=== PATIENT | female | born 1945 | race Caucasian/White ===

== ENCOUNTER 2017-05-06 12:31 | Outpatient (CLI) | payer MEDICARE, BC ==
[2017-05-06 16:55] LABS: Hematocrit 43.5 % (36.0-47.0); Mean Platelet Volume 9.6 fL (7.4-10.4); Red Blood Cell (RBC) Count 4.53 mill/uL (4.20-5.40); White Blood Cell (WBC) Count 7.9 thou/uL (4.8-10.8)
[2017-05-06 17:00] LABS: PTT 28.6 SEC (22.9-36.1); Prothrombin Time 12.6 SEC (12.0-14.7)
[2017-05-06 17:26] LABS: Anion Gap 18 mmol/L (10-20); BUN (Urea Nitrogen) 19 mg/dL (9.8-20.1); Calc. Creatinine Clearance 0 mL/min (70-130); Calcium 9.6 mg/dL (7.8-10.44); Carbon Dioxide 20 mmol/L (23-31); Chloride 106 mmol/L (98-107); Estimated GFR-MDRD 50
--- NOTE | 2017-05-09 15:54 | EKG ---
Test Reason : PREOP Blood Pressure : / mmHG Vent. Rate : 086 BPM Atrial Rate : 077 BPM P-R Int : 000 ms QRS Dur : 188 ms QT Int : 442 ms P-R-T Axes : 000 -86 091 degrees QTc Int : 528 ms Electronic ventricular pacemaker When compared with ECG of 27-JAN-2017 06:44, Premature ventricular complexes are no longer Present Vent. rate has increased BY [address] Iliana BARBER ([id number]) on 05/09/2017 3:54:23 PM Referred By: FAY Confirmed By:DR. Iliana BARBER
== END 2017-05-06 12:32 | disposition home or self-care (01) ==
LOC: LABBT 12:31
PROVIDERS: ATTEND Internal Medicine Cardiovascular Disease
DX: Z01.818 Encounter for other preprocedural examination (principal); I48.91 Unspecified atrial fibrillation
CPT/HCPCS: 80048; 85027; 85610; 85730; 93005; 93010

== ENCOUNTER 2017-05-20 14:48 | Outpatient (CLI) | payer MEDICARE, BC ==
[2017-05-20 15:40] LABS: Hematocrit 43.4 % (36.0-47.0); Red Blood Cell (RBC) Count 4.57 mill/uL (4.20-5.40)
[2017-05-20 15:50] LABS: PTT 29.5 SEC (22.9-36.1); Prothrombin Time 13.2 SEC (12.0-14.7)
[2017-05-20 16:03] LABS: ALT (SGPT) 27 U/L (8-55); AST (SGOT) 25 U/L (5-34); Alkaline Phosphatase 117 U/L (40-150); Anion Gap 13 mmol/L (10-20); BUN (Urea Nitrogen) 23 mg/dL (9.8-20.1); Bilirubin, Total 1.9 mg/dL (0.2-1.2); Calc. Creatinine Clearance 0 mL/min (70-130); Carbon Dioxide 27 mmol/L (23-31); Chloride 103 mmol/L (98-107); Estimated GFR-MDRD 46; Globulin 3.3 g/dL (2.4-3.5); Protein, Total 7.5 g/dL (6.0-8.3)
== END 2017-05-20 14:49 | disposition home or self-care (01) ==
LOC: LABBT 14:48
PROVIDERS: ATTEND Internal Medicine Cardiovascular Disease
DX: Z01.818 Encounter for other preprocedural examination (principal); R94.39 Abnormal result of other cardiovascular function study
CPT/HCPCS: 80053; 85027; 85610; 85730

== ENCOUNTER 2017-05-22 06:20 | Day surgery (SDC) | payer MEDICARE, BC ==
[2017-05-20 15:13] VITALS: BMI 36.9
[2017-05-22] MEDS ORDERED: Diazepam 5 MG TAB PO SCH (07:15)
[2017-05-22] MEDS ORDERED: Heparin 10,000 UNITS/1 ML VIAL ONE (07:28)
[2017-05-22] MEDS ORDERED: Diazepam 5 MG TAB ONE (07:29)
[2017-05-22] MEDS ORDERED: Heparin 1000 UNIT/NS 500ML(OR) 1,000 ML ONE (07:29)
[2017-05-22] MEDS ORDERED: Midazolam HCl 2 mg/2 ml Vial ONE (08:49)
[2017-05-22] MEDS ORDERED: Fentanyl 100 MCG/2 ML VIAL ONE (08:50)
[2017-05-22] MEDS ORDERED: Acetaminophen/Codeine 30-300mg Tablet ONE (10:25)
[2017-05-22] MEDS ORDERED: traMADol HCl 50 MG TAB PO PRN (11:41)
[2017-05-22] MEDS ORDERED: Acetaminophen/Codeine 30-300mg Tablet PO PRN ×2 (11:41)
[2017-05-22] MEDS ORDERED: Nitroglycerin 0.4 MG TAB (25 Tab Bottle) SL PRN (11:41)
[2017-05-22] MEDS ORDERED: diphenhydrAMINE 50 MG/ML VIAL ONE (11:59)
[2017-05-22] MEDS ORDERED: Iopamidol 370 76% 100 ML VIAL ONE (15:11)
--- NOTE | 2017-05-22 19:41 | DIS ---
DATE OF ADMISSION: 05/22/2017 DATE OF DISCHARGE: 05/22/2017 DISCHARGE DIAGNOSES: 1. Coronary artery disease. 2. Hypertension. 3. Dyslipidemia. 4. Atrial fibrillation. 5. Hypertension. 6. Diabetes mellitus. HISTORY OF PRESENT ILLNESS: The patient is a pleasant 72-year-old woman who presented with recurrent chest discomfort. The patient has a history of mild coronary artery disease. She has had the Watch man procedure done for atrial fibrillation. The patient reported recently having increasing chest di scomfort. She underwent a PET scan which revealed possible anterior ischemia with a mild decrease in left ventricular ejection fraction. HOSPITAL COURSE: On 05/22/2017, the patient underwent a left heart catheterization and was found to have normal left ventricular systolic function with estimated ejection fraction 55-60%. The LAD had a 20% proximal lesion, left circumflex artery had a 20% proximal lesion, the right coronary had a 20% mid lesion. The patient was felt to have mild coronary artery disease with no significant progressi on have only mild coronary artery disease. Patient will continue on medical therapy. DISCHARGE MEDICATION: Aspirin 81 daily, Lipitor 20 at bedtime, Plavix 75 daily, iron sulfate 325 rebekah ly, Lasix 40 q.a.m., glipizide 2.5 b.i.d., Imdur 120 q.a.m., lisinopril 40 daily, metformin 500 b.i.d . which will be restarted on Friday, metoprolol 25 mg p.o. b.i.d.
== END 2017-05-22 14:34 | disposition home or self-care (01) ==
LOC: CCL 06:20
PROVIDERS: ATTEND Internal Medicine Cardiovascular Disease
DX: I25.10 Atherosclerotic heart disease of native coronary artery without angina pectoris (principal); I10 Essential (primary) hypertension; E78.5 Hyperlipidemia, unspecified; E11.9 Type 2 diabetes mellitus without complications; I48.0 Paroxysmal atrial fibrillation; E66.9 Obesity, unspecified; Z68.37 Body mass index [BMI] 37.0-37.9, adult; Z79.82 Long term (current) use of aspirin; Z79.84 Long term (current) use of oral hypoglycemic drugs; Z79.899 Other long term (current) drug therapy; Z91.048 Other nonmedicinal substance allergy status; Z88.0 Allergy status to penicillin; Z88.1 Allergy status to other antibiotic agents; Z88.8 Allergy status to other drugs, medicaments and biological substances; Z82.49 Family history of ischemic heart disease and other diseases of the circulatory system
CPT/HCPCS: 80061; 93458; C1769; 99152; J1200; J1644; J2250; J3010

== ENCOUNTER 2018-04-30 10:49 | Outpatient (CLI) | payer MEDICARE, BC | END 2018-04-30 10:50 | disposition home or self-care (01) | LOC: BICMAMMO 10:49 | PROVIDERS: ATTEND Family Medicine | DX: Z12.31 Encounter for screening mammogram for malignant neoplasm of breast (principal); R92.1 Mammographic calcification found on diagnostic imaging of breast; Z85.3 Personal history of malignant neoplasm of breast | CPT/HCPCS: 77063; 77067 ==

== ENCOUNTER 2018-10-28 14:04 | Emergency (ER) | payer MEDICARE, BC ==
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
[2018-10-28 15:25] LABS: #Eosinphils 0.1 thou/uL (0.0-0.7); #Lymphocytes 1.5 thou/uL (1.20-3.40); #Monocytes 0.6 thou/uL (0.11-0.59); #Neutrophils 7.4 thou/uL (1.40-6.50); %Basophils 0.4 % (0.0-1.0); %Eosinophils 0.8 % (0.0-10.0); %Lymphocytes 15.3 % (21.0-51.0); %Monocytes 6.3 % (0.0-10.0); %Neutrophils 77.4 % (42.0-75.0); Hemoglobin 13.3 g/dL (12.0-16.0); Mean Corpuscular HGB CONC 32.5 g/dL (32.0-36.0); Mean Corpuscular Hemoglobin 30.5 pg (27.0-31.0); Mean Platelet Volume 9.5 fL (7.4-10.4); Platelet Count 152 thou/uL (130-400); RBC Distribution Width 14.5 % (11.5-14.5); Red Blood Cell (RBC) Count 4.37 mill/uL (4.20-5.40); White Blood Cell (WBC) Count 9.6 thou/uL (4.8-10.8)
[2018-10-28 15:30] LABS: Prothrombin Time 12.9 SEC (12.0-14.7)
[2018-10-28 15:31] LABS: PTT 30.4 SEC (22.9-36.1)
[2018-10-28 15:45] LABS: ALT (SGPT) 35 U/L (8-55); AST (SGOT) 29 U/L (5-34); Albumin 4.1 g/dL (3.4-4.8); Alkaline Phosphatase 116 U/L (40-150); Anion Gap 15 mmol/L (10-20); BUN (Urea Nitrogen) 15 mg/dL (9.8-20.1); Bilirubin, Total 2.7 mg/dL (0.2-1.2); CK (CPK) 72 U/L (29-168); Calc. Creatinine Clearance 0 mL/min (70-130); Calcium 9.6 mg/dL (7.8-10.44); Carbon Dioxide 25 mmol/L (23-31); Chloride 103 mmol/L (98-107); Estimated GFR-MDRD 50; Globulin 2.6 g/dL (2.4-3.5); Glucose 174 mg/dL (83-110); Potassium 3.5 mmol/L (3.5-5.1); Protein, Total 6.7 g/dL (6.0-8.3); Sodium 139 mmol/L (136-145)
[2018-10-28] MEDS ORDERED: HYDROcodone/Acetaminophen 7.5/325 mg Tablet ONE ×5 (15:48→16:03)
[2018-10-28] MEDS ORDERED: Furosemide 40 MG/4 ML VIAL ONE (16:37)
== END 2018-10-28 16:55 | disposition home or self-care (01) ==
LOC: ERS 14:04
DX: S20.212A Contusion of left front wall of thorax, initial encounter (principal); I10 Essential (primary) hypertension; F41.9 Anxiety disorder, unspecified; Z79.899 Other long term (current) drug therapy; Z79.82 Long term (current) use of aspirin; Z79.84 Long term (current) use of oral hypoglycemic drugs; V49.9XXA Car occupant (driver) (passenger) injured in unspecified traffic accident, initial encounter
CPT/HCPCS: 36415; 71045; 80053; 82550; 83880; 84484; 85025; 85610; 85730; 93005; 96374; J1940

== ENCOUNTER 2019-05-04 13:10 | Outpatient (CLI) | payer MEDICARE, BC ==
--- NOTE | 2019-05-04 14:47 | MMO ---
Bilateral MAMMO Bilat Screen [facility]. CLINICAL HISTORY: Patient is 74 years old and is seen for screening. The patient has no family history of breast cancer. The patient has a history of Core biopsy procedure revealed invasive ductal left breast carcinoma in January, and invasive ductal left breast carcinoma 2005. The patient has a history of left Lumpectomy in January, - invasive ductal carcinoma. VIEWS: The views performed were: bilateral craniocaudal with tomosynthesis; bilateral mediolateral oblique with tomosynthesis; left mediolateral oblique; and cleavage view. FILMS COMPARED: The present examination has been compared to prior imaging studies performed at [facility] on 12/01/2015, 04/26/2016, 04/28/2017 and 04/30/2018. This study has been interpreted with the assistance of computer-aided detection. MAMMOGRAM FINDINGS: There are scattered fibroglandular densities. There are stable benign appearing calcifications seen in both breasts. There are no suspicious masses, calcifications or areas of architectural distortion. There are no suspicious masses, suspicious calcifications, or new areas of architectural distortion. IMPRESSION: THERE IS NO MAMMOGRAPHIC EVIDENCE OF MALIGNANCY. A ROUTINE FOLLOW-UP MAMMOGRAM IN 1 YEAR IS RECOMMENDED. THE RESULTS OF THIS EXAM WERE SENT TO THE PATIENT. ACR BI-RADS Category 2 - Benign finding MAMMOGRAPHY NOTE: 1. A negative mammogram report should not delay a biopsy if a dominant of clinically suspicious mass is present. 2. Approximately 10% to 15% of breast cancers are not detected by mammography. 3. Adenosis and dense breasts may obscure an underlying neoplasm. Reported by: HUNTER WILKINSON MD Electonically Signed: [id number]
== END 2019-05-04 13:11 | disposition home or self-care (01) ==
LOC: BICMAMMO 13:10
PROVIDERS: ATTEND Family Medicine
DX: Z12.31 Encounter for screening mammogram for malignant neoplasm of breast (principal); Z85.3 Personal history of malignant neoplasm of breast; Z98.890 Other specified postprocedural states
CPT/HCPCS: 77063; 77067

== ENCOUNTER 2020-05-03 14:06 | Outpatient (CLI) | payer MEDICARE, BC ==
--- NOTE | 2020-05-03 14:58 | ULT ---
Exam: Left upper surgery venous ultrasound with Doppler HISTORY: Edema. Evaluate for thrombus. COMPARISON: None TECHNIQUE: Grayscale, color flow, Doppler imaging and spectral waveform analysis of the left upper ex tremity venous system FINDINGS: Breast ability, patency and flow in the internal jugular vein Patent subclavian vein Compressibility, patency and flow in the axillary vein, basilic vein, cephalic vein, brachial vein, r adial vein and ulnar vein. Left upper extremity edema. IMPRESSION: 1. No evidence of thrombus in the left upper extremity venous system. 2. Left upper extremity edema.
== END 2020-05-03 14:07 | disposition home or self-care (01) ==
LOC: BICULT 14:06
PROVIDERS: ATTEND Nurse Practitioner
DX: R60.0 Localized edema (principal)

== ENCOUNTER 2020-06-01 20:29 | Inpatient (IN) | payer MEDICARE, BC ==
[~2020-06-01 20:29] MED LIST: Iopamidol-370 76% 500 ML 1 ML ONE
[2020-06-01] MEDS ORDERED: Furosemide 40 MG/4 ML VIAL ONE (20:51)
[2020-06-01 21:09] LABS: #Eosinphils 0.1 thou/uL (0.0-0.7); #Lymphocytes 1.6 thou/uL (1.20-3.40); #Monocytes 0.7 thou/uL (0.11-0.59); #Neutrophils 5.1 thou/uL (1.40-6.50); %Basophils 0.2 % (0.0-1.0); %Eosinophils 1.9 % (0.0-10.0); %Lymphocytes 21.3 % (21.0-51.0); %Monocytes 9.6 % (0.0-10.0); %Neutrophils 67.1 % (42.0-75.0); Hemoglobin 12.3 g/dL (12.0-16.0); Mean Corpuscular HGB CONC 31.2 g/dL (32.0-36.0); Mean Corpuscular Hemoglobin 29.2 pg (27.0-31.0); Mean Corpuscular Volume 93.8 fL (78.0-98.0); Mean Platelet Volume 9.7 fL (7.4-10.4); Platelet Count 151 thou/uL (130-400); White Blood Cell (WBC) Count 7.7 thou/uL (4.8-10.8)
--- NOTE | 2020-06-01 21:14 | RAD ---
PORTABLE CHEST: Date: 06/01/2020 PROVIDED CLINICAL HISTORY: Shortness of breath. FINDINGS: Comparison with 10/28/2018. Evaluation is limited by patient body habitus. The cardiac silhouette remains markedly enlarged. Left subclavian cardiac pacing device is redemonstr ated. Coil material overlies the central left chest, similar to prior There is left basilar pleural a nd/or parenchymal opacity involving about half of the left hemithorax. The right lung appears clear. There is no evidence for pneumothorax. IMPRESSION: Conspicuous left basilar and pleural and/or parenchymal opacity. POS: PAUL
[2020-06-01 21:31] LABS: ALT (SGPT) 15 U/L (8-55); AST (SGOT) 20 U/L (5-34); Albumin 3.5 g/dL (3.4-4.8); Alkaline Phosphatase 181 U/L (40-110); Anion Gap 14 mmol/L (10-20); BUN (Urea Nitrogen) 35 mg/dL (9.8-20.1); Bilirubin, Total 2.9 mg/dL (0.2-1.2); Calc. Creatinine Clearance 0 mL/min (70-130); Calcium 9.2 mg/dL (7.8-10.44); Carbon Dioxide 27 mmol/L (23-31); Chloride 105 mmol/L (98-107); Glucose 134 mg/dL (83-110); Protein, Total 6.5 g/dL (6.0-8.3); Sodium 142 mmol/L (136-145)
--- NOTE | 2020-06-01 22:37 | CT ---
CT ABDOMEN AND PELVIS WITH IV CONTRAST: Date: 06/01/2020 PROVIDED CLINICAL HISTORY: Abdominal distention. FINDINGS: There is prominent dilatation of the right atrium. There is bilateral pleural fluid, left greater arie n right. There is consolidation at the left lung base that may reflect passive atelectasis and/or pne umonia. The liver, spleen, pancreas, kidneys, and adrenal glands appear unremarkable. There is moderate free intraperitoneal fluid. There is no evidence for bowel obstruction. There is no localized inflammatory fat stranding or free air apparent. There is extensive reticulation of the grayson bcutaneous adipose layer and patchy noncircumscribed fluid density throughout the regional subcutaneo us adipose layer. There is a focal round focus of altered CT density within the anterior abdominal wa ll subcutaneous adipose layer in the midline infraumbilically which presumably reflects a small ventr al hernia containing fluid. Prominent atherosclerotic vascular calcifications are seen. The osseous structures demonstrate no con cerning lytic or blastic lesions. IMPRESSION: 1. Bilateral pleural fluid, left greater than right, with subsegmental atelectasis and/or pneumonia at the left lung base. 2. Findings suggesting anasarca. 3. Moderate free intraperitoneal fluid. POS: PAUL
[2020-06-01] MEDS ORDERED: Acetaminophen 325 MG TAB PO PRN (23:54)
[2020-06-01] MEDS ORDERED: Acetaminophen 650 MG Suppository PR PRN (23:54)
[2020-06-01] MEDS ORDERED: Ondansetron PF 4 MG/2 ML Vial IVP PRN (23:54)
[2020-06-01] MEDS ORDERED: Ondansetron ODT 4 MG TAB PO PRN (23:54)
[2020-06-01] MEDS ORDERED: Calcium Carbonate 500 MG ChewTAB PO PRN (23:54)
--- NOTE | 2020-06-02 00:01 | PDOC.HHP ---
Hospitalist HPI - History of Present Illness abd distention sob History of Present Illness: Case of an 75y/o female with a pmhx of breast cacad, htn, hld atrial fibrillation s/p watchman, s/p ppm and DM who presents emergency department with 1 month of worsening abdominal distention. refers her son about 1 month ago and patient has not been compliant with her medications since then. patient states her legs have been swelling and now is difficult to walk. she complains of dyspnea and cough which has worsen recently denies any fever chills dysuria or diarrhea. Hospitalist ROS - Review of Systems All other systems reviewed; all pertinent +/- noted in HPI/Subj Hospitalist History - Past Surgical History Other Surgical History: stent - Family History Family History: reports: cardiac disorder, diabetes mellitus, hypertension - Social History Smoking Status: Never smoker Alcohol: reports: None Drugs: reports: none - Exam General Appearance: NAD, awake alert Eye: PERRL, anicteric sclera ENT: normocephalic atraumatic, no oropharyngeal lesions Neck: supple, symmetric, no thyromegaly Heart: RRR, no murmur, no gallops Respiratory: no ronchi, normal chest expansion, no tachypnea, rales Gastrointestinal: soft, non-tender, non-distended, normal bowel sounds Extremities: no clubbing, 2+ LE edema Extremities - other findings: significant swelling of L arm Skin: normal turgor Skin - other findings: multiple lesions on legs and abdomen Neurological: cranial nerve grossly intact, normal sensation to touch, no weakness Musculoskeletal: normal tone, normal strength Psychiatric: normal affect, normal behavior, A&O x 3 Hospitalist Results - Labs Result Diagrams: 06/01/20 20:57 06/01/20 20:57 Lab results: WBC 7.7 thou/uL (4.8-10.8) 06/01/20 20:57 Hgb 12.3 g/dL (12.0-16.0) 06/01/20 20:57 Hct 39.4 % (36.0-47.0) 06/01/20 20:57 MCV 93.8 fL (78.0-98.0) 06/01/20 20:57 Plt Count 151 thou/uL (130-400) 06/01/20 20:57 Neutrophils % 67.1 % (42.0-75.0) 06/01/20 20:57 Sodium 142 mmol/L (136-145) 06/01/20 20:57 Potassium 4.0 mmol/L (3.5-5.1) 06/01/20 20:57 Chloride 105 mmol/L (98-107) 06/01/20 20:57 Carbon Dioxide 27 mmol/L (23-31) 06/01/20 20:57 BUN 35 mg/dL (9.8-20.1) H 06/01/20 20:57 Creatinine 1.61 mg/dL (0.6-1.1) H 06/01/20 20:57 Glucose 134 mg/dL (83-110) H 06/01/20 20:57 Calcium 9.2 mg/dL (7.8-10.44) 06/01/20 20:57 Total Bilirubin 2.9 mg/dL (0.2-1.2) H 06/01/20 20:57 AST 20 U/L (5-34) 06/01/20 20:57 ALT 15 U/L (8-55) 06/01/20 20:57 Alkaline Phosphatase 181 U/L (40-110) H 06/01/20 20:57 Troponin I 0.019 ng/mL (< 0.028) 06/01/20 20:57 B-Natriuretic Peptide 827.6 pg/mL (0-100) H 06/01/20 20:57 Serum Total Protein 6.5 g/dL (6.0-8.3) 06/01/20 20:57 Albumin 3.5 g/dL (3.4-4.8) 06/01/20 20:57 Hospitalist H&P A/P - Problem (1) Decompensated heart failure Code(s): I50.9 - HEART FAILURE, UNSPECIFIED Status: Acute (2) Renal failure (ARF), acute on chronic Code(s): N17.9 - ACUTE KIDNEY FAILURE, UNSPECIFIED; N18.9 - CHRONIC KIDNEY DISEASE, UNSPECIFIED Status: Acute (3) Atrial fibrillation Code(s): I48.91 - UNSPECIFIED ATRIAL FIBRILLATION Status: Chronic (4) CAD (coronary artery disease) Code(s): I25.10 - ATHSCL HEART DISEASE OF [place] CORONARY ARTERY W/O ANG PCTRS Status: Chronic (5) CKD (chronic kidney disease) stage 3, GFR 30-59 ml/min Status: Chronic (6) DM2 (diabetes mellitus, type 2) Status: Chronic (7) HTN (hypertension) Code(s): I10 - ESSENTIAL (PRIMARY) HYPERTENSION Status: Chronic (8) Pleural effusion on left Code(s): J90 - PLEURAL EFFUSION, NOT ELSEWHERE CLASSIFIED Status: Acute (9) Respiratory failure with hypoxia Code(s): J96.91 - RESPIRATORY FAILURE, UNSPECIFIED WITH HYPOXIA Status: Acute - Plan Plan: Case of an 75y/o female with the stated pmhx who presents with Decompensated heart failure Decompensated heart failure - starting lasix iv - continue beta sarath - holding acei due to acute on chronic kidney injury - 02 supplmentation -bnp in 800s respiratory failure, acute - secondary to d chf and pleural effusion - 02 supplementation pleural effusion L sided - likely related to heart failure - could benefit from thoracenthesis - pulmonology consulted - concern for pneumonia low, f/u procalcitonin renal failure acute over chronic - likely due to vascular congestion - will start lasix iv, can worsen before improvement - monitor u/o and creatinine values cad continue home meds atrial fibrilliation - s/p watchman - cardiac monitoring - rate control w beta sarath - on asa DM - acc+ss L arm swelling - unclear etiology - refers weeks to months of progression - negative dvt - migh be related to hx of breast ca and lymph node removal anasarca - seen on Physical exam and abd/pelvic CT - normal appearing organs, no mass dectected
[2020-06-02] MEDS ORDERED: HumaLOG 300 UNITS/3 ML VIAL SC PRN (00:11)
[2020-06-02] MEDS ORDERED: Dextrose 5% in Water 1,000 ML IV PRN (00:11)
[2020-06-02] MEDS ORDERED: Dextrose 50% Abboject 50 ML SYRINGE SLOW IVP PRN (00:11)
[2020-06-02 00:29] LABS: Troponin I 0.023 ng/mL (< 0.028)
[2020-06-02 01:26] VITALS: BMI 43.6
[2020-06-02 04:29] LABS: SARS-CoV-2 MS2 Positive; SARS-CoV-2 N Gene Negative; SARS-CoV-2 S Gene Negative; SARS-CoV-2 by NAA Not Detected (NotDetected); SARS-CoV-2 orf1ab Negative
[2020-06-02 05:12] LABS: #Eosinphils 0.1 thou/uL (0.0-0.7); #Lymphocytes 1.8 thou/uL (1.20-3.40); #Monocytes 1.2 thou/uL (0.11-0.59); %Basophils 0.3 % (0.0-1.0); %Eosinophils 0.7 % (0.0-10.0); %Lymphocytes 19.9 % (21.0-51.0); %Monocytes 13.4 % (0.0-10.0); %Neutrophils 65.7 % (42.0-75.0); Hemoglobin 12.6 g/dL (12.0-16.0); Mean Corpuscular HGB CONC 30.8 g/dL (32.0-36.0); Mean Corpuscular Hemoglobin 28.8 pg (27.0-31.0); Mean Corpuscular Volume 93.6 fL (78.0-98.0); Mean Platelet Volume 10.1 fL (7.4-10.4); Platelet Count 133 thou/uL (130-400); RBC Distribution Width 15.9 % (11.5-14.5); Red Blood Cell (RBC) Count 4.36 mill/uL (4.20-5.40); White Blood Cell (WBC) Count 9.1 thou/uL (4.8-10.8)
[2020-06-02 05:43] LABS: ALT (SGPT) 13 U/L (8-55); AST (SGOT) 22 U/L (5-34); Albumin 3.4 g/dL (3.4-4.8); Alkaline Phosphatase 168 U/L (40-110); Anion Gap 16 mmol/L (10-20); BUN (Urea Nitrogen) 34 mg/dL (9.8-20.1); Bilirubin, Direct 0.9 mg/dL (0.1-0.3); Calc. Creatinine Clearance 65 mL/min (70-130); Calcium 9.2 mg/dL (7.8-10.44); Carbon Dioxide 21 mmol/L (23-31); Chloride 107 mmol/L (98-107); Glucose 78 mg/dL (83-110); Potassium 4.1 mmol/L (3.5-5.1); Protein, Total 6.4 g/dL (6.0-8.3); Sodium 140 mmol/L (136-145)
[2020-06-02 05:59] LABS: Troponin I 0.024 ng/mL (< 0.028)
[2020-06-02] MEDS ORDERED: Furosemide 40 MG/4 ML VIAL SLOW IVP SCH (06:00)
[2020-06-02] MEDS ORDERED: Enoxaparin Sodium 40 MG/0.4 ML SYRINGE SC SCH (09:00)
[2020-06-02] MEDS ORDERED: Metoprolol Tartrate 25 MG TAB PO SCH (09:00)
[2020-06-02] MEDS: Aspirin Chewable 81 MG TAB PO SCH (09:04)
[2020-06-02] MEDS: Enoxaparin Sodium 40 MG/0.4 ML SYRINGE SC SCH (09:04)
--- NOTE | 2020-06-02 10:45 | PDOC.BPN ---
- Brief Progress Note Encounter Date: 06/02/20 Encounter Time: 10:42 This is a case of an unfortunate 75-year-old woman who has multiple underlying cardiac history including congestive heart failure from diastolic dysfunction, chronic atrial fibrillation with watchman procedure done, morbid obesity with a BMI of 43, diabetes who presented to the hospital with Increasing abdominal distention going on for couple of days. Reportedly patient recently lost her son and she has been quite depressed. As a result she has not been taking her on routine home medicines. She has gained about 20 pounds she thinks in the last month. She does have generalized edema from her feet up to her thighs. She has increased abdominal girth. CT obtained on admission showed moderate intraperitoneal fluid likely ascites from a volume overload. She also in addition has bilateral pleural effusion worse on the left. She is going to need aggressive diuresis and increase her Lasix to 80 mg twice daily. We will measure her urine output daily, will check her weight daily and will strictly restrict her fluids to 1500 mL daily. We will make further recommendations as the hospital course warrants.
--- NOTE | 2020-06-02 13:46 | CON ---
DATE OF CONSULTATION: 06/02/2020 CONSULTING PHYSICIAN: Dr. Keith Crews. REASON FOR CONSULTATION: Pleural effusion. HISTORY OF PRESENT ILLNESS: This is a 75-year-old female, who presented to the emergency room last night with a one month history of increasing shortness of breath and abdominal distention. She is a very poor historian. She tells me she does have a history of heart failure, but cannot really expound upon that. She also tells me that she has history of sleep apnea, but that her CPAP machine was taken away by the company because she believes she no longer had SUSANNAH. She states that she has orthopnea, paroxysmal nocturnal dyspnea. She has to sleep in a recliner at night. PAST MEDICAL HISTORY: 1. Atrial fibrillation. 2. Breast cancer. 3. Diabetes mellitus. 4. Hyperlipidemia. PAST SURGICAL HISTORY: 1. She has had a Watchman procedure. 2. Pacemaker placement. 3. Coronary stent placement. FAMILY MEDICAL HISTORY: Remarkable for; 1. Coronary artery disease. 2. Diabetes mellitus. 3. Hypertension. SOCIAL HISTORY: Never smoker. Does not consume alcohol. Does not use illicit drugs. ALLERGIES: ADHESIVE TAPE, DRONEDARONE, LEVOFLOXACIN, AND PENICILLINS. MEDICATIONS: Prior to admission; 1. Atorvastatin 40 mg nightly. 2. Isosorbide mononitrate 120 mg daily. 3. Ferrous sulfate 325 mg every morning. 4. Vitamin D3 of 1000 units every morning. 5. Glipizide 2.5 mg daily. 6. Metoprolol 25 mg b.i.d. 7. Lisinopril 40 mg daily. 8. Furosemide 40 mg every morning. 9. Keflex 250 mg b.i.d. as needed. 10. Metformin 5000 mg b.i.d. 11. Aspirin 81 mg daily. 12. Alprazolam 0.25 mg as needed. 13. Nitroglycerin sublingual as needed. Her inpatient medications were reviewed. Of note, she is on Lasix 80 mg b.i.d. REVIEW OF SYSTEMS: Twelve-point review of systems is otherwise negative. PHYSICAL EXAMINATION: VITAL SIGNS: Temperature 97.2, pulse 76, respirations 18, O2 sat 97% on 3 L, blood pressure 111/60. GENERAL: She is a morbidly obese female, standing 5 feet 7 inches, weighing 278 pounds, BMI is 43.6. GENERAL: She appears disheveled, but in no acute distress. HEENT: Pupils reactive. Sclerae anicteric. Oropharynx class 4 Mallampati airway. NECK: No adenopathy or JVD. CHEST: She has diminished breath sounds in both bases. CARDIAC: S1, S2 obscured by a 2/6 holosystolic murmur. ABDOMEN: Profoundly distended. She has discoid macular lesions present over the surface of her abdomen. EXTREMITIES: She has discoid macular lesions present on her arms and legs. She has 3 to 4+ edema throughout her arms and legs. LABORATORY AND DIAGNOSTIC DATA: White blood cell count 9.1, hematocrit 40.8, and platelet count 133. Sodium 140, potassium 4.8, chloride 107, CO2 of 21, BUN 34, creatinine 1.5, glucose 78. BNP level was 827. TSH 3.6. Her COVID test was negative. I reviewed her CT and chest x-rays. She has a small left pleural effusion. Echocardiogram demonstrates EF probably less than 20% with a mildly enlarged right ventricle, [id number] tricuspid regurgitation. ASSESSMENT: Ms. Napier is a 75-year-old female presenting with anasarca, which is secondary to biventricular heart failure. The patient has a grossly diminished ejection fraction, but also has evidence of right-sided failure. The right-sided failure may be secondary to sleep apnea. The pleural effusion is part of the overall picture. It is not of significant enough size to warrant thoracentesis. RECOMMENDATIONS: I would recommend diuresing the patient as you are doing. This will probably take several days to accomplish and get her back to reasonable weight. When she is discharged from the hospital, I would recommend further evaluation through her primary care provider for sleep apnea, which should entail ordering a repeat sleep study and getting her back on CPAP. Pulmonary will be available as needed, please call. Job ID: [id number]
[2020-06-02] MEDS: diphenhydrAMINE 25 MG CAP PO PRN (14:12)
[2020-06-02] MEDS: Furosemide 100 MG/10 ML VIAL SLOW IVP SCH (15:12)
[2020-06-02] MEDS: Potassium Chloride 20 MEQ TAB PO SCH (16:15)
--- NOTE | 2020-06-02 16:18 | ULT ---
LIMITED ABDOMINAL ULTRASOUND: 06/02/20 PROVIDED CLINICAL HISTORY: Ascites. FINDINGS: Limited sonographic interrogation of the right upper quadrant, right lower quadrant, left lower quad rant, and left upper quadrant demonstrates moderate free intraperitoneal fluid. IMPRESSION: Moderate ascites. POS: PAUL
--- NOTE | 2020-06-02 19:43 | CON ---
DATE OF CONSULTATION: HISTORY OF PRESENT ILLNESS: Christal Napier is a 75-year-old white female patient of Dr. Ramos. She underwent stent placement to the circumflex in April 2007 and in April 2008. She has had longstanding paroxysmal and persistent atrial fibrillation. She has undergone atrial fibrillation ablation as well as placement of a Watchman, AV node ablation, and single-chamber pacemaker placement. Her last echo in the office was in October 2018. She had ejection fraction of 60% to 65% with mild aortic stenosis, mild aortic regurgitation, [id number] tricuspid regurgitation, and moderately elevated RV pressures. She was last seen in the office in April and was complaining of some mild shortness of breath. She had been noncompliant with her CPAP. Apparently, her son a month ago and according to 's reports to the admitting physician, she has not been taking her medications. She states over the last month she has had increasing shortness of breath, increasing peripheral edema, and episodes of PND. She denies any chest discomfort. Due to her worsening dyspnea, she came to the emergency room for further evaluation. PAST MEDICAL HISTORY: Diabetes, hyperlipidemia, obesity, coronary artery disease, chronic atrial fibrillation now, hypertension, history of breast cancer. PAST SURGICAL HISTORY: Back surgery, breast surgery, neck surgery, cholecystectomy, atrial fibrillation ablation, placement of Watchman, stent placement in the circumflex (in May 2017, she only had 20% stenosis in the circumflex, mid LAD, and the mid right coronary artery). MEDICATIONS: 1. Alprazolam 0.25 mg p.r.n. 2. Aspirin 81 daily. 3. Atorvastatin 40 at bedtime. 4. Keflex 250 p.r.n. 5. Ferrous sulfate 325 q.a.m. 6. Furosemide 40 q.a.m. 7. Glipizide 2.5 mg q.a.m. 8. Isosorbide mononitrate 120 q.a.m. 9. Lisinopril 40 at bedtime. 10. Metformin 500 b.i.d. 11. Metoprolol 25 b.i.d. 12. Nitroglycerin p.r.n. ALLERGIES: MULTAQ, LEVAQUIN, PENICILLINS. SOCIAL HISTORY: She does not smoke or drink. PHYSICAL EXAMINATION: VITAL SIGNS: Blood pressure 109/64, pulse 69. HEENT: PERRL. NECK: Supple. CHEST: Reveals crackles at the bases. CARDIOVASCULAR: S1 and S2 are normal without any S3, S4, or murmur. ABDOMEN: Obese. Normal bowel sounds. EXTREMITIES: Reveal 2 to 3+ peripheral edema. NEUROLOGIC: Grossly intact. LABORATORY DATA: EKG reveals ventricular pacing. Chest x-ray reveals opacity over the left hemithorax. Echocardiogram was very technically difficult. Difficult to assess left ventricular function; however, it was probably less than 20%. There was mild mitral regurgitation and [id number]-[id number] tricuspid regurgitation. The aortic valve was not well seen. CBC is unremarkable. Sodium 140, potassium 4.1, chloride 107, carbon dioxide 21, BUN 34, creatinine 1.50. Troponin I is normal. BNP 827.6. TSH is normal. IMPRESSION: 1. Systolic heart failure. Ejection fraction in October 2018 was 60% to 65% and now appears to be less than 20%. 2. Chronic right ventricular pacing. 3. Persistent atrial fibrillation, status post multiple ablations. 4. History of Watchman procedure. 5. History of coronary artery disease, status post stents placed in the circumflex on 2 occasions. Last catheterization in 2016 revealed no significant coronary artery disease. 6. Hypertension. 7. Hyperlipidemia. 8. Obesity. 9. Diabetes. 10. Obstructive sleep apnea. 11. Noncompliance with medications recently. 12. Chronic kidney disease. PLAN: The patient will be diuresed. The lisinopril has been held at this time due to her chronic kidney disease. Her renal function will need to be watched closely. Also with her current left ventricular ejection fraction, I will switch her from metoprolol to carvedilol. Consideration needs to be given to upgrade to a biventricular ICD or biventricular pacemaker and Electrophysiology has been consulted to see her on Friday. Job ID: [id number] [facility]
[2020-06-03] MEDS: diphenhydrAMINE 25 MG CAP PO PRN (03:14)
[2020-06-03 05:07] LABS: #Eosinphils 0.1 thou/uL (0.0-0.7); #Lymphocytes 1.5 thou/uL (1.20-3.40); #Monocytes 0.8 thou/uL (0.11-0.59); #Neutrophils 5.6 thou/uL (1.40-6.50); %Basophils 0.2 % (0.0-1.0); %Eosinophils 1.6 % (0.0-10.0); %Lymphocytes 18.2 % (21.0-51.0); %Monocytes 10.2 % (0.0-10.0); %Neutrophils 69.8 % (42.0-75.0); Hemoglobin 12.2 g/dL (12.0-16.0); Mean Corpuscular HGB CONC 30.3 g/dL (32.0-36.0); Mean Corpuscular Hemoglobin 28.8 pg (27.0-31.0); Mean Platelet Volume 9.9 fL (7.4-10.4); Platelet Count 140 thou/uL (130-400); RBC Distribution Width 15.9 % (11.5-14.5); Red Blood Cell (RBC) Count 4.24 mill/uL (4.20-5.40)
[2020-06-03 05:13] LABS: INR-International Normal Ratio 1.1; PTT 36.3 sec (22.9-36.1); Prothrombin Time 14.9 sec (12.0-14.7)
[2020-06-03 05:39] LABS: Anion Gap 17 mmol/L (10-20); BUN (Urea Nitrogen) 38 mg/dL (9.8-20.1); Calc. Creatinine Clearance 61 mL/min (70-130); Calcium 9.2 mg/dL (7.8-10.44); Carbon Dioxide 23 mmol/L (23-31); Chloride 105 mmol/L (98-107); Glucose 89 mg/dL (83-110); Potassium 4.9 mmol/L (3.5-5.1); Sodium 140 mmol/L (136-145)
[2020-06-03] MEDS: Furosemide 100 MG/10 ML VIAL SLOW IVP SCH ×2 (06:49→13:16)
[2020-06-03] MEDS: Aspirin Chewable 81 MG TAB PO SCH (09:34)
[2020-06-03] MEDS: Potassium Chloride 20 MEQ TAB PO SCH ×2 (09:34→17:36)
[2020-06-03] MEDS: Carvedilol 3.125 MG TAB PO SCH ×3 (09:34→17:35)
[2020-06-03] MEDS ORDERED: Lidocaine 1% PF 5 ML VIAL ONE (10:08)
--- NOTE | 2020-06-03 10:49 | ULT ---
Limited abdominal ultrasound: 06/03/2020 HISTORY: Evaluate volume of ascites for therapeutic paracentesis FINDINGS: There is scattered fluid within the abdomen/pelvis suggesting a relatively mild/moderate de gree of diffuse ascites. The volume of ascites does not suggest that there would be significant therapeutic benefit with paracentesis. This was discussed with the ordering physician at the time of interpretation. As this is not requested to be a diagnostic paracentesis, this procedure is deferred at this time and could be reconsidered at a later time if fluid volume increases. IMPRESSION: Ascites within the abdomen/pelvis, not of sufficient volume to indicate significant thera peutic benefit to paracentesis.
[2020-06-03] MEDS ORDERED: Albumin 25% 25 GM/100 ML BOT IVPB SCH (10:58)
--- NOTE | 2020-06-03 11:45 | PDOC.HOSPP ---
- Subjective Encounter Date: 06/03/20 Encounter Time: 11:42 Subjective: Ms. Napier is a 75-year-old woman who presented to the hospital with increased abdominal girth and weight gain. This was associated with 2-3+ pitting edema up to her thighs. She has generalized anasarca. She does have a history of chronic congestive heart failure previously with a preserved ejection fraction by most recent echo showed an EF less than 20. Apparently for about a month she has not been taking her medicines. She lost her son recently and just has not been taking care of her self. Since being admitted she has been placed on diuresis with Lasix with very minimal improvement. She had a CT of the abdomen and pelvis obtained on admission that showed what appeared to be a moderate ascites. However an attempt at therapeutic paracentesis did not yield any significant amount of fluid. We will continue diuresis and watch for hopefully increasing urinary output. - Objective Vital Signs & Weight: Vital Signs (12 hours) Temp Pulse Resp BP Pulse Ox 06/03/20 08:00 97.8 F 70 18 109/63 96 06/03/20 03:43 97.6 F 71 16 96/56 L 95 06/03/20 01:06 98 06/02/20 23:55 97.6 F 70 16 101/65 98 Weight Weight 272 lb 12.8 oz I&O: 06/02/20 06/03/20 06/04/20 06:59 06:59 06:59 Intake Total 1604 80 Output Total 850 175 Balance 754 -95 Result Diagrams: 06/03/20 04:49 06/03/20 04:49 Additional Labs: Accuchecks 06/03/20 06/03/20 06/02/20 11:22 05:01 16:51 POC Glucose 77 81 85 Radiology Reviewed by me: Yes EKG Reviewed by me: Yes Hospitalist ROS - Review of Systems Constitutional: reports: weakness, malaise ENT: reports: mouth swelling Respiratory: reports: shortness of breath Cardiovascular: reports: orthopnea, paroxysmal noc. dyspnea, edema - Medication Medications: Active Medications Generic Name Dose Route Start Last Admin Trade Name Freq PRN Reason Stop Dose Admin Acetaminophen 650 mg 06/01/20 23:54 06/02/20 07:53 Acetaminophen 325 Mg Tab PO 650 mg Q4H PRN Administration Headache/Fever/Mild Pain (1-3) Aspirin 81 mg 06/02/20 09:00 06/03/20 09:34 Aspirin Chewable 81 Mg Tab PO 81 mg DAILY LARISA Administration Calcium Carbonate 1,000 mg 06/01/20 23:54 06/02/20 21:01 Calcium Carbonate 500 Mg Chewtab PO 1,000 mg Q4H PRN Administration Heartburn or Indigestion Diphenhydramine HCl 25 mg 06/02/20 13:52 06/03/20 03:14 Diphenhydramine 25 Mg Cap PO 25 mg Q8H PRN Administration Itching & Insomnia Enoxaparin Sodium 40 mg 06/02/20 09:00 06/02/20 09:04 Enoxaparin Sodium 40 Mg/0.4 Ml Syringe SC 40 mg 0900 LARISA Administration Furosemide 80 mg 06/02/20 14:00 06/03/20 06:49 Furosemide 100 Mg/10 Ml Vial SLOW IVP 80 mg 0600,1400 LARISA Administration Ondansetron HCl 4 mg 06/01/20 23:54 06/03/20 03:14 Ondansetron Pf 4 Mg/2 Ml Vial IVP 4 mg Q6H PRN Administration Nausea/Vomiting Potassium Chloride 40 meq 06/02/20 17:00 06/03/20 09:34 Potassium Chloride 20 Meq Tab PO 40 meq BID-WM LARISA Administration Sodium Chloride 10 ml 06/02/20 21:00 06/03/20 09:35 Flush - Normal Saline 10 Ml Syringe IVF 10 ml Q12HR LARISA Administration - Exam General Appearance: awake alert, ill appearing Eye: PERRL, anicteric sclera, scleral icterus ENT: normocephalic atraumatic, no oropharyngeal lesions, moist mucosa Neck: supple, symmetric, JVD Heart: RRR, no murmur, no gallops, no rubs, normal peripheral pulses Respiratory: no wheezes, normal chest expansion, rales, rhonchi Gastrointestinal: soft, non-tender, normal bowel sounds, distended Extremities: 2+ LE edema Skin: normal turgor, no lesions Neurological: cranial nerve grossly intact, normal sensation to touch Musculoskeletal: normal tone, normal strength, generalized weakness Psychiatric: normal affect, normal behavior, A&O x 3 Hosp A/P (1) Pleural effusion on left Code(s): J90 - PLEURAL EFFUSION, NOT ELSEWHERE CLASSIFIED Status: Acute (2) Aortic stenosis Code(s): I35.0 - NONRHEUMATIC AORTIC (VALVE) STENOSIS Status: Acute Qualifiers: Cardiac valve disease etiology: nonrheumatic Qualified Code(s): I35.0 - Nonrheumatic aortic (valve) stenosis - Plan old records reviewed/req, PT/OT #1. Acute respiratory failure with hypoxia. This is secondary to congestive heart failure exacerbation. Continue O2 supplementation as needed. 2. Acute on chronic congestive heart failure exacerbation. I suspect this is biventricular. She has been placed on Lasix. However her urine output is very minimal. I will continue this for now and watch her renal function closely. 3. Ischemic cardiomyopathy. Her EF is less than 20%. We will resume her home medications. 4. Acute kidney injury. We will hold her lisinopril and watch her renal function closely. 5. Pleural effusion left > right. Diuresis as above.
--- NOTE | 2020-06-03 11:59 | ULT ---
Left upper extremity venous Doppler ultrasound: 06/03/2020 COMPARISON: None HISTORY: Left arm swelling, evaluate for DVT TECHNIQUE: Multiplanar grayscale sonographic imaging of the venous structures of the left upper extre mity obtained with Doppler interrogation including color flow and spectral analysis FINDINGS: The left internal jugular vein, subclavian vein, axillary vein, brachial vein, radial vein, ulnar vein, cephalic vein, and basilic vein demonstrate patency. Normal blood flow, augmentation, and compression. No evidence for deep venous thrombosis of the left upper extremity. IMPRESSION: No evidence for left upper extremity DVT.
[2020-06-03] MEDS: Enoxaparin Sodium 40 MG/0.4 ML SYRINGE SC SCH (12:13)
[2020-06-04] MEDS: Furosemide 100 MG/10 ML VIAL SLOW IVP SCH ×2 (05:28→16:50)
[2020-06-04] MEDS: Enoxaparin Sodium 40 MG/0.4 ML SYRINGE SC SCH (09:36)
[2020-06-04] MEDS: Potassium Chloride 20 MEQ TAB PO SCH ×2 (09:36→16:41)
[2020-06-04] MEDS: Aspirin Chewable 81 MG TAB PO SCH (09:36)
[2020-06-04] MEDS: Carvedilol 3.125 MG TAB PO SCH ×2 (09:40→16:50)
[2020-06-04] MEDS ORDERED: Furosemide 100 MG/10 ML VIAL SLOW IVP SCH (10:00)
[2020-06-04] MEDS ORDERED: Sodium Chloride 0.9% 250 ML IV SCH (10:15)
--- NOTE | 2020-06-04 13:30 | PDOC.HOSPP ---
- Subjective Encounter Date: 06/04/20 Encounter Time: 13:28 Subjective: Ms. Napier was seen and evaluated this morning. Her urine output is still pretty minimal. She was admitted to the hospital for acute on chronic CHF exacerbation from systolic dysfunction. Despite high doses of Lasix her urine output has been very minimal. I am going to ask our x ray technologist to help with diuresis. - Objective Vital Signs & Weight: Vital Signs (12 hours) Temp Pulse Pulse Pulse Resp BP BP 06/04/20 12:00 97.6 F 69 20 06/04/20 11:32 70 70 104/62 106/64 06/04/20 07:15 97.6 F 70 24 H 06/04/20 04:24 69 20 06/04/20 03:54 97.4 F L 70 18 06/04/20 01:35 BP Pulse Ox 06/04/20 12:00 95/60 95 06/04/20 11:32 06/04/20 07:15 106/55 L 97 06/04/20 04:24 108/62 94 L 06/04/20 03:54 91/56 L 90 L 06/04/20 01:35 94 L Weight Weight 280 lb 3.2 oz I&O: 06/03/20 06/04/20 06/05/20 06:59 06:59 06:59 Intake Total 1528 1140 Output Total 850 340 Balance 678 800 Result Diagrams: 06/03/20 04:49 06/03/20 04:49 Additional Labs: Accuchecks 06/04/20 06/04/20 06/03/20 10:20 05:09 17:41 POC Glucose 133 H 86 82 Radiology Reviewed by me: Yes EKG Reviewed by me: Yes Hospitalist ROS - Review of Systems Constitutional: reports: weakness, malaise Cardiovascular: reports: paroxysmal noc. dyspnea Gastrointestinal: reports: nausea Neurological: reports: weakness - Medication Medications: Active Medications Generic Name Dose Route Start Last Admin Trade Name Freq PRN Reason Stop Dose Admin Acetaminophen 650 mg 06/01/20 23:54 06/02/20 07:53 Acetaminophen 325 Mg Tab PO 650 mg Q4H PRN Administration Headache/Fever/Mild Pain (1-3) Aspirin 81 mg 06/02/20 09:00 06/04/20 09:36 Aspirin Chewable 81 Mg Tab PO 81 mg DAILY LARISA Administration Calcium Carbonate 1,000 mg 06/01/20 23:54 06/02/20 21:01 Calcium Carbonate 500 Mg Chewtab PO 1,000 mg Q4H PRN Administration Heartburn or Indigestion Carvedilol 3.125 mg 06/03/20 08:00 06/04/20 09:40 Carvedilol 3.125 Mg Tab PO Not Given BID-WM LARISA Diphenhydramine HCl 25 mg 06/02/20 13:52 06/03/20 03:14 Diphenhydramine 25 Mg Cap PO 25 mg Q8H PRN Administration Itching & Insomnia Enoxaparin Sodium 40 mg 06/02/20 09:00 06/04/20 09:36 Enoxaparin Sodium 40 Mg/0.4 Ml Syringe SC 40 mg 0900 LARISA Administration Furosemide 80 mg 06/02/20 14:00 06/04/20 05:28 Furosemide 100 Mg/10 Ml Vial SLOW IVP 80 mg 0600,1400 LARISA Administration Ondansetron HCl 4 mg 06/01/20 23:54 06/03/20 03:14 Ondansetron Pf 4 Mg/2 Ml Vial IVP 4 mg Q6H PRN Administration Nausea/Vomiting Potassium Chloride 40 meq 06/02/20 17:00 06/04/20 09:36 Potassium Chloride 20 Meq Tab PO 40 meq BID-WM LARISA Administration Sodium Chloride 10 ml 06/02/20 21:00 06/04/20 09:38 Flush - Normal Saline 10 Ml Syringe IVF 10 ml Q12HR LARISA Administration Sodium Chloride 10 ml 06/02/20 14:00 06/04/20 05:28 Flush - Normal Saline 10 Ml Syringe IVF 10 ml PRN PRN Administration Saline Flush - Exam General Appearance: NAD, awake alert, ill appearing Eye: PERRL, anicteric sclera ENT: normocephalic atraumatic, dry oral mucosa Neck: supple, symmetric, no JVD, no thyromegaly Heart: RRR, no murmur, no gallops, no rubs, normal peripheral pulses Respiratory: CTAB, no wheezes, no rales, no ronchi, normal chest expansion Gastrointestinal: soft, non-tender, non-distended, normal bowel sounds Neurological: cranial nerve grossly intact, normal sensation to touch, no weakness Musculoskeletal: normal tone, normal strength, no muscle wasting Psychiatric: normal affect, normal behavior, A&O x 3 Hosp A/P (1) Pleural effusion on left Code(s): J90 - PLEURAL EFFUSION, NOT ELSEWHERE CLASSIFIED Status: Acute (2) Aortic stenosis Code(s): I35.0 - NONRHEUMATIC AORTIC (VALVE) STENOSIS Status: Acute Qualifiers: Cardiac valve disease etiology: nonrheumatic Qualified Code(s): I35.0 - Nonrheumatic aortic (valve) stenosis - Plan plan discussed w/ family, PT/OT, respiratory therapy, out of bed/ambulate, DVT proph w/lovenox #1. Acute respiratory failure with hypoxia. This is secondary to congestive heart failure exacerbation. Continue O2 supplementation as needed. 2. Acute on chronic congestive heart failure exacerbation. I suspect this is biventricular. She has been placed on Lasix. However her urine output is very minimal. I will continue this for now and watch her renal function closely. 06/04/2020. Her urine output is still very minimal. She is almost anuric. I am going to request nephrology to help us with further management. 3. Ischemic cardiomyopathy. Her EF is less than 20%. We will resume her home medications. 4. Acute kidney injury. We will hold her lisinopril and watch her renal function closely. 06/04/2020. I am going to ask nephrology to help with the further management of this complex patient. 5. Pleural effusion left > right. Diuresis as above.
[2020-06-04] MEDS ORDERED: DOPamine 400 MG/D5W 250 ML 250 ML IVPB SCH (18:45)
[2020-06-04] MEDS ORDERED: Metolazone 5 MG TAB PO SCH (18:45)
[2020-06-04 19:09] LABS: Anion Gap 15 mmol/L (10-20); BUN (Urea Nitrogen) 45 mg/dL (9.8-20.1); Calc. Creatinine Clearance 35 mL/min (70-130); Calcium 9.2 mg/dL (7.8-10.44); Carbon Dioxide 24 mmol/L (23-31); Chloride 102 mmol/L (98-107); Glucose 89 mg/dL (83-110); Potassium 6.3 mmol/L (3.5-5.1); Sodium 135 mmol/L (136-145)
[2020-06-04] MEDS ORDERED: Dextrose 50% Abboject 50 ML SYRINGE SLOW IVP SCH (20:15)
[2020-06-04] MEDS ORDERED: Calcium Gluc 4.6 MEQ/10 ML (100 MG/ML) SLOW IVP SCH (20:15)
[2020-06-04] MEDS ORDERED: Insulin Regular 300 UNITS/3 ML VIAL IVP SCH (20:15)
[2020-06-04 23:36] VITALS: BP 122/60
[2020-06-05] MEDS: DOBUTamine 500 mg/250 ml 250 ML IVPB SCH ×2 (00:06→18:11)
--- NOTE | 2020-06-05 00:44 | CON ---
DATE OF CONSULTATION: CONSULTING PHYSICIAN: Little Brooks MD REQUESTING PHYSICIAN: Dr. Huang. REASON FOR CONSULTATION: Acute kidney injury. IMPRESSION: 1. Acute kidney injury, this is likely severe cardiorenal syndrome, which I am afraid has protracted long enough into dense acute tubular necrosis. 2. Cardiomyopathy, likely responsible for the above problem. 3. Anasarca in the context of acute renal shutdown and congestive heart failure. PLAN: 1. Discontinue potassium supplementation. 2. Augment this patient's loop diuretic with Zaroxolyn. 3. Avoid potentially nephrotoxic agents. 4. Serum chemistry to evaluate this patient's chemistry, electrolytes, given the renal shutdown. 5. Appreciate Cardiology input, trying to improve cardiac output, which is the only hope for any form of renal recovery in this patient. 6. There is no emergent indication for renal replacement therapy (hemodialysis). However, if the patient remains anuric and with such feature of anasarca, this modality of treatment will become indicated. 7. Discontinue carvedilol. HISTORY OF PRESENT ILLNESS: History is that of a 75-year-old female patient with history of breast cancer, hypertension, dyslipidemia, atrial fibrillation status post Watchman, diabetes mellitus type 2, and obesity, who presented here with about 1-month history of worsening abdominal distention. The patient seems not to have been compliant with her medications since after losing her son, and has been experiencing progressive retention of fluid, making it difficult to ambulate. As a result, the patient presented here, where the patient was noted with a creatinine slightly elevated at 1.86 and because this patient has not be making any urine, decision was taken to involve Renal in the management of this case. PAST MEDICAL HISTORY: As documented in the body of the history. MEDICATIONS: Reviewed as documented on [facility]. FAMILY HISTORY: No family history of kidney disease. SOCIAL HISTORY: No alcohol. No tobacco. No illicit drug use. REVIEW OF SYSTEMS: As documented in the body of the history. All the other systems were reviewed and found not to be significantly related to presenting illness. LABORATORY INVESTIGATION: Shows no chemistry today. PHYSICAL EXAMINATION: GENERAL: The patient noted to be afebrile with the following vital signs. VITAL SIGNS: Temperature 97.6, pulse 69, respiratory rate of 20, O2 saturation are 95% with a blood pressure of 95/60 to 106/64. HEENT: Unremarkable. CARDIOVASCULAR SYSTEM: First and second heart sounds were heard. RESPIRATORY SYSTEM: Clear to auscultation anteriorly. DIGESTIVE SYSTEM: Revealed an obese abdomen. EXTREMITIES: Showed 2 to 3+ bilateral lower extremity edema with generalized features of anasarca. SUMMARY: A 75-year-old female patient, who presented here with reduced urine output and evidence of renal dysfunction, which seems to be progressively getting worse. Thank you for this consultation. We will follow with you. ADDENDUM: Laboratory investigation that was later carried out reviewed, hyperkalemia. Plan will be medical treatment with 50% dextrose and insulin, 30 g of Kayexalate and calcium gluconate with a plan to repeat blood chemistry. If the patient continues to have persistent hyperkalemia and worsening renal failure, renal replacement therapy (dialytic intervention) will become indicated. Job ID: [id number]
--- NOTE | 2020-06-05 03:33 | PDOC.EVN ---
Event Note - Event Note Event Note: Nursing called to report low UOP today, on lasix. Nephrology managing. Also, patient hypoxic on NRB. Was hypotensive, cardiology ordered dopamine and dobutamine drips earlier this evening. BP stable at time of assessment. Patient was on dopamine drip at this time and nurse was going to start dobutamine drip per cardiology. Upon assessment, patient has increased work of breathing, sp02 88% NRB, able to speak in complete sentences. Anasarca. Will place on Bipap and transfer to [facility]. Discussed case with Dr. Crews.
[2020-06-05 04:17] LABS: #Eosinphils 0.1 thou/uL (0.0-0.7); #Lymphocytes 0.9 thou/uL (1.20-3.40); #Monocytes 1.2 thou/uL (0.11-0.59); #Neutrophils 8.3 thou/uL (1.40-6.50); %Basophils 0.1 % (0.0-1.0); %Eosinophils 0.5 % (0.0-10.0); %Lymphocytes 8.8 % (21.0-51.0); %Neutrophils 79.5 % (42.0-75.0); Hemoglobin 12.1 g/dL (12.0-16.0); Mean Corpuscular HGB CONC 30.7 g/dL (32.0-36.0); Mean Corpuscular Hemoglobin 29.3 pg (27.0-31.0); Mean Corpuscular Volume 95.4 fL (78.0-98.0); Platelet Count 118 thou/uL (130-400); Red Blood Cell (RBC) Count 4.14 mill/uL (4.20-5.40); White Blood Cell (WBC) Count 10.5 thou/uL (4.8-10.8)
[2020-06-05 04:53] LABS: Albumin 3.3 g/dL (3.4-4.8); Anion Gap 15 mmol/L (10-20); BUN (Urea Nitrogen) 46 mg/dL (9.8-20.1); BUN/Creatinine Ratio 15.59; Calc. Creatinine Clearance 33 mL/min (70-130); Calcium 9.2 mg/dL (7.8-10.44); Carbon Dioxide 22 mmol/L (23-31); Chloride 104 mmol/L (98-107); Glucose 113 mg/dL (83-110); Phosphorus 4.8 mg/dL (2.3-4.7); Potassium 6.1 mmol/L (3.5-5.1); Sodium 135 mmol/L (136-145)
[2020-06-05] MEDS: Furosemide 100 MG/10 ML VIAL SLOW IVP SCH ×2 (06:26→13:56)
--- NOTE | 2020-06-05 08:25 | RAD ---
PORTABLE CHEST: HISTORY: Hypoxia. ICU followup. COMPARISON: 06/01/2020. FINDINGS: Opacification of the left mid and lower lung field again noted, unchanged. Cardiomegaly with mild va scular congestion again noted. Pacemaker leads unchanged. Continued opacification of the left mid and lower chest, unchanged from 06/01/2020. POS: OFF
[2020-06-05] MEDS ORDERED: Lidocaine 1% (PF) 30 ML VIAL ONE (08:37)
[2020-06-05] MEDS: Enoxaparin Sodium 30 MG/0.3 ML SYRINGE SC SCH (09:46)
[2020-06-05] MEDS: Aspirin Chewable 81 MG TAB PO SCH (09:46)
[2020-06-05] MEDS: Metolazone 5 MG TAB PO SCH (09:52)
[2020-06-05 10:35] LABS: HBSAB Concentration Less than 8.00 mIU/mL; Hep B Core Total Ab Non-Reactive (NonReactive); Hep B Core Total Index 0.09 S/CO (0-0.79); Hep B Surf AB Non-Reactive (NonReactive); Hep B Surf Ag Non-Reactive S/CO (NonReactive); Hep C IgG Ab Non-Reactive (NonReactive); Hep C Index 0.06 S/CO (0-0.79)
--- NOTE | 2020-06-05 11:51 | PRG ---
DATE OF SERVICE: 06/05/2020 SUBJECTIVE: The patient was transferred to the [facility] last night for the purpose of BiPAP. She is also now on dialysis, has been started on dobutamine and dopamine. I did discuss the case with Dr. Benavidez in detail. OBJECTIVE: VITAL SIGNS: Temperature 96.8, pulse 70, blood pressure 90/39, O2 saturation 94%. HEENT: Unremarkable. NECK: No JVD. LUNGS: Coarse breath sounds. CARDIAC: S1 and S2. Distant. ABDOMEN: Soft. EXTREMITIES: Edematous. LABORATORY DATA: White blood cell count 10.5, hematocrit 39.5, and platelet count 118. Sodium 135, potassium 6.1, chloride 104, CO2 of 22, BUN 46, creatinine 2.9, and glucose 113. X-ray continued to show heart failure. ASSESSMENT: 1. Acute renal failure. 2. Cardiorenal syndrome. 3. Systolic heart failure. PLAN: The patient is being transferred to ICU so that she can have norepinephrine to go along with dobutamine. She will need dialysis. At some point in future, she probably needs a workup for sleep apnea. For the time being, she will continue BiPAP. Job ID: [id number]
[2020-06-05] MEDS ORDERED: Heparin 10,000 UNITS/ 10 ML VIAL ONE (12:30)
--- NOTE | 2020-06-05 15:00 | CON ---
DATE OF CONSULTATION: 06/05/2020 REASON FOR CONSULTATION: Management of cardiogenic shock. HISTORY OF PRESENT ILLNESS: Ms. Christal Napier, 75-year-old lady with known atrial fibrillation, pacemaker dependency, and history of breast cancer, presented with increasing edema and then cardiogenic shock. She was in good health in 2004. She was found to have breast cancer in 2005. She underwent resection, chemotherapy and 6 weeks of radiation. After that, she has had a multitude of cardiac problems. She developed atrial fibrillation and underwent 5 ablation procedures, none of them were quite successful. Eventually, she AV node ablation was done and she became pacer dependent. [facility]. They found her to be edematous. They increased her diuretics. She was told to follow up. She did see [facility] closely afterwards. However, her son on May 15. That caused her much grief. After that, she was not moving very much and lost interest. From that point on, she has a steady overall fluid build up from her abdomen, from her chest, and especially her left arm and bilateral legs. She felt so bad that she wanted to celebrate Thanksgiving early. The combination of fluid buildup and decreasing mobility caused her to take her into the hospital. At baseline, about 6 months ago, she was able to ambulate with a cane. During the COVID-19 pandemic, she was still able to ambulate around her house with a cane. However, that has deteriorated to the point where she can barely get out of bed as of the last week. She was admitted to hospital on June 01. Her admission creatinine was 1.61, then on June 03 to June 04, creatinine suddenly jumped from 1.6 to 2.76. She also stopped making urine. She was found to be in state of severe anasarca. Combination of increasing potassium, severe volume overload caused start of the dialysis. When I walked in her room, she was minimally responsive. Her systolic blood pressure was about 70 to 71. A quick interrogation of her pacemaker system showed that she is 98% pacer dependent. Dobutamine was titrated up to 10 mcg/kg per minute. Dopamine was also titrated up to 10 mcg/min and her basal heart rate was increased to 90 beats per minute. The combination brought her systolic blood pressure to 90s to low 100 range. At that normal systolic blood pressure, some dialysis was able to take place and about 1 L was eventually able to be removed. She is minimally responsive. Most of this history was gathered from her , Tom Napier, and also from other doctors. PAST MEDICAL HISTORY: 1. History of chronic atrial fibrillation since 2006. Post five ablation attempts and has a Watchman device. AV node ablation was done. She is now pacer dependent with predominant right ventricular pacing. She only has a single lead in the right ventricle. 2. History of coronary artery disease with stent to the left circumflex. However, catheterization/coronary angiogram done in 2017 did not show any significant stenosis. 3. History of breast cancer, discovered in 2005. She underwent surgery. She also had lymph nodes removed in her left axilla. This would give her left shoulder, left arm edema. She underwent chemotherapy. She also underwent 6 weeks of radiation. 4. Diabetes. SOCIAL HISTORY: 1. She never smoked. 2. There is no reported alcohol use. 3. There is no illicit drug use. 4. She lives with her . She and her have been for 55 years. FAMILY HISTORY: 1. Her father from colon cancer at about age 66. 2. Her mother from cirrhosis, she was alcoholic. 3. There is no immediate family history of heart disease. REVIEW OF SYSTEMS: Cannot be done because she was not really answering questions at all. ALLERGIES: INCLUDE ADHESIVE, DRONEDARONE, LEVOFLOXACIN, AND PENICILLIN. CURRENT MEDICATIONS: Include; 1. Aspirin 81 mg daily. 2. Dobutamine currently at 10 mcg/kg per minute. 3. Dopamine at 10 mcg/kg per minute. 4. Enoxaparin 30 mg subcutaneously daily. PHYSICAL EXAMINATION: VITAL SIGNS: Heart rate 90, blood pressure 98/58. GENERAL: She will open her eyes and attempt to answer questions. She is on a BiPAP. She is fatigued. HEENT: Showed EOMI. Her oropharynx appears to be dry. NECK: JVP difficult to assess due to her body habitus. However, it looks her earlobe are moving, so the JVP will be at least 14 cm. PULMONARY: She has very much decreased breath sounds. There is no air moving in her left lung. There is good coarse breath sounds in the right lung. HEART: It is regular rate and rhythm, there is 3/6 holosystolic murmur at the left sternal border. There is apparent 2/6 holosystolic murmur near the apex. ABDOMEN: Very distended, soft, but there is pitting edema all the way around her abdomen, all the way to her back. EXTREMITIES: Hips, she has pitting hip edema. She has pitting thigh edema. She also has pitting edema from her thighs all the way down her feet. She also has pitting edema in both arms, much worse in her left arm. LABORATORY VALUES: White cell count 10.5, hemoglobin 12.1, platelets at 118. Her chemistry shows sodium 135, potassium 6.1, bicarb 22, BUN 46, creatinine of 2.95, calcium is 9.2. Her latest BNP value from May 26 is 817. There is no magnesium given. Chest x-ray was reviewed. It showed cardiomegaly and opacification of the left lung and also likely large amount of pulmonary edema in her right lung. Her echocardiogram from June 02, 2020, was reviewed. 1. She has increased left ventricular inner diameter, she has very much dilated left ventricle. 2. LVEF is about 10%. 3. There is severe diastolic dysfunction with likely restrictive filling pattern. However, since she is paced, this would not be accurate. 4. She has dilated right ventricle with mildly depressed right ventricular function. 5. Tricuspid regurgitation suggests there is at least 50 mmHg of pressure gradient. 6. Her IVC dilated at 2.5 cm and does not collapse with inspiration. The new estimated pulmonary systolic pressure is 50 plus 15, which is 65. ASSESSMENT: A 75-year-old female, is in cardiogenic shock due to heart failure. Echocardiograms in October 2018 suggested the EF around 60% to 65%. Consequently, is acute heart failure. Combination of right ventricular pacing, possibly takotsubo cardiomyopathy due to the loss of her son, and history of chemo plus radiation, all contributed to her left ventricular dysfunction. She is also in severe volume overloaded state. She is in anasarca. Fortunately, a dialysis catheter has been placed and hemodialysis has been started. Thus, she has severe cardiorenal syndrome causing complete renal failure. At this point, we will need to work on hemodynamics to increase her cardiac output and increase the mean arterial blood pressure to perfuse her organ. After that, hemodialysis needs to be continued to remove volume. We will also need to upgrade her single lead single-chamber pacemaker to a biventricular HR REPRESENTATIVE-D device. In combination of these three, then she will have a chance to live. Otherwise, her prognosis is extremely poor. Please see the following for my recommendations. PROCEDURE Procedure was done. The procedure was interrogation and reprogramming her pacemaker. The pacemaker is Medtronic Sensia [id number]. It has a serial number of [id number]. 1. Lower rate was 70 beats per minute. 2. The mode is VVIR. 3. She is 97.8% paced and 2.2% paced. 4. Looking at her EGM, she is completely pacemaker dependent. Due to her low blood pressure, her basal rate was increased from 70 to 80. That only temporarily gave her better blood pressure; however, increasing to 90 beats per minute increased her systolic blood pressure around 10 or better mmHg, so this helped. So, I left her on 90 beats per minute pacing. However, this is only temporary, she needs an upgrade. RECOMMENDATIONS 1. Move her to CCU. She will need higher level of care and norepinephrine plus a vasopressin as needed. 2. Continue dopamine at 10 mcg/kg per minute and dobutamine at 10 mcg/kg per minute for now. Titrate up as needed. 3. After moving from IMCU to CCU, we will change from dopamine to norepinephrine. The norepinephrine plus dobutamine combination have shown superior results than dopamine plus dobutamine. She may need less inotropic support then. 4. Please continue to dialyze her. She will need maximal volume movement daily. She is in the state of anasarca. 5. We will work with Electrophysiology. She will need to have an emergent upgrade of a single-chamber device to a biventricular pacing. Without that, her heart will get worse. She is temporarily paced at 90 beats per minute, this cannot continue. With the Bi-V device, she will have a chance. 6. It is certain how much she can recover. However, since this seemed to be fairly recent onset within last 2 to 3 months, therefore recovery is still possible. It has been a pleasure taking care of Ms. Christal Napier. If you have any questions, please give me a call. The total critical care time is about 90 minutes. This includes personally performing history and physical, reading echocardiogram, programming pacemaker and interrogating pacemaker, and titrating IV medications at bedside, and then holding family meeting with her , and coordinating care with multiple members of the medical team. Job ID: [id number] MANDA
--- NOTE | 2020-06-05 16:01 | PDOC.HOSPP ---
- Subjective Encounter Date: 06/05/20 Encounter Time: 16:00 Subjective: Events reviewed from last night. Ms. Napier was moved to the ICU due to hyperkalemia. Nephrology was asked to evaluate her and she has been started on emergency dialysis. She became completely anuric with very little urinary output. She is now requiring vasopressors for cardiogenic shock. - Objective Vital Signs & Weight: Vital Signs (12 hours) Temp Pulse Pulse Ox 06/05/20 12:11 91 06/05/20 08:00 96.8 F L 97 06/05/20 04:17 97.3 F L Weight Weight 289 lb 4.8 oz Most Recent Monitor Data Heart Rate from ECG 90 NIBP 99/58 NIBP BP-Mean 71 Respiration from ECG 21 SpO2 96 I&O: 06/04/20 06/05/20 06/06/20 06:59 06:59 06:59 Intake Total 1140 1183 Output Total 340 110 Balance 800 1073 Result Diagrams: 06/05/20 04:00 06/05/20 04:00 Additional Labs: Accuchecks 06/05/20 06/05/20 06/04/20 12:35 05:35 21:51 POC Glucose 137 H 114 H 106 H 06/04/20 06/03/20 06/02/20 16:41 20:43 21:02 POC Glucose 97 93 95 Radiology Reviewed by me: Yes EKG Reviewed by me: Yes Hospitalist ROS - Review of Systems ROS unobtainable: due to mental status Eyes: reports: conjunctivae inflammation Respiratory: reports: shortness of breath, SOB with excertion Cardiovascular: reports: paroxysmal noc. dyspnea, edema Gastrointestinal: reports: nausea, vomiting Neurological: reports: weakness - Medication Medications: Active Medications Generic Name Dose Route Start Last Admin Trade Name Freq PRN Reason Stop Dose Admin Acetaminophen 650 mg 06/01/20 23:54 06/02/20 07:53 Acetaminophen 325 Mg Tab PO 650 mg Q4H PRN Administration Headache/Fever/Mild Pain (1-3) Aspirin 81 mg 06/02/20 09:00 06/05/20 09:46 Aspirin Chewable 81 Mg Tab PO 81 mg DAILY LARISA Administration Calcium Carbonate 1,000 mg 06/01/20 23:54 06/02/20 21:01 Calcium Carbonate 500 Mg Chewtab PO 1,000 mg Q4H PRN Administration Heartburn or Indigestion Diphenhydramine HCl 25 mg 06/02/20 13:52 06/03/20 03:14 Diphenhydramine 25 Mg Cap PO 25 mg Q8H PRN Administration Itching & Insomnia Enoxaparin Sodium 30 mg 06/05/20 09:00 06/05/20 09:46 Enoxaparin Sodium 30 Mg/0.3 Ml Syringe SC 30 mg 0900 LARISA Administration Furosemide 80 mg 06/02/20 14:00 06/05/20 13:56 Furosemide 100 Mg/10 Ml Vial SLOW IVP Not Given 0600,1400 LARISA Dobutamine HCl/Dextrose 250 mls @ 19.065 mls/hr 06/04/20 18:45 06/05/20 00:06 Dobutamine 500 Mg/250 Ml IVPB 250 mls INF LARISA Administration Protocol 5 MCG/KG/MIN Dopamine HCl/Dextrose 250 mls @ 11.915 mls/hr 06/04/20 18:45 06/04/20 20:56 Dopamine 400 Mg/D5w 250 Ml IVPB 250 mls INF LARISA Administration Protocol 2.5 MCG/KG/MIN Metolazone 5 mg 06/05/20 08:30 06/05/20 09:52 Metolazone 5 Mg Tab PO Not Given 0830 [facility] Ondansetron HCl 4 mg 06/01/20 23:54 06/03/20 03:14 Ondansetron Pf 4 Mg/2 Ml Vial IVP 4 mg Q6H PRN Administration Nausea/Vomiting Sodium Chloride 10 ml 06/02/20 21:00 06/05/20 09:51 Flush - Normal Saline 10 Ml Syringe IVF 10 ml Q12HR LARISA Administration Sodium Chloride 10 ml 06/02/20 14:00 06/04/20 05:28 Flush - Normal Saline 10 Ml Syringe IVF 10 ml PRN PRN Administration Saline Flush - Exam ENT: normocephalic atraumatic, no oropharyngeal lesions Neck: supple, symmetric Heart: RRR, no murmur, no gallops Respiratory: CTAB Neurological: cranial nerve grossly intact, normal sensation to touch Psychiatric: normal affect, normal behavior, A&O x 3, oriented to person Hosp A/P (1) Pleural effusion on left Code(s): J90 - PLEURAL EFFUSION, NOT ELSEWHERE CLASSIFIED Status: Acute (2) Aortic stenosis Code(s): I35.0 - NONRHEUMATIC AORTIC (VALVE) STENOSIS Status: Acute Qualifiers: Cardiac valve disease etiology: nonrheumatic Qualified Code(s): I35.0 - Nonrheumatic aortic (valve) stenosis - Plan plan discussed w/ family #1. Acute respiratory failure with hypoxia. This is secondary to congestive heart failure exacerbation. Continue O2 supplementation as needed. 2. Acute on chronic congestive heart failure exacerbation. I suspect this is biventricular. She has been placed on Lasix. However her urine output is very minimal. I will continue this for now and watch her renal function closely. 06/04/2020. Her urine output is still very minimal. She is almost anuric. I am going to request nephrology to help us with further management. 3. Ischemic cardiomyopathy. Her EF is less than 20%. We will resume her home medications. 4. Acute kidney injury. We will hold her lisinopril and watch her renal function closely. 06/04/2020. I am going to ask nephrology to help with the further management of this complex patient. 5. Pleural effusion left > right. Diuresis as above. #6. Cardiogenic shock. She is now requiring multiple vasopressors and was transferred to ICU overnight. We will continue this per dormitory keeper recommendation.
[2020-06-05] MEDS: Norepinephrine 8 MG/0.9% NS 250 ML IVPB SCH (16:21)
[2020-06-05] MEDS: Vasopressin 20 UNIT, Admixture Fee 1 EACH in Sodium Chloride 0.9% 50 ML IV SCH (17:41)
--- NOTE | 2020-06-05 19:44 | PRG ---
DATE OF SERVICE: 06/05/2020 SUBJECTIVE: The patient was seen and examined, noted to be doing very well, noted with the following vital signs. OBJECTIVE: VITAL SIGNS: Afebrile, blood pressure 120/63, pulse 90, respiratory rate of 20, O2 saturation 100%. HEENT EXAMINATION: Unremarkable. CARDIOVASCULAR SYSTEM: First and second heart sounds were heard. RESPIRATORY SYSTEM: Clear to auscultation. DIGESTIVE SYSTEM: Revealed obese abdomen. EXTREMITIES: Show edema. LABORATORY INVESTIGATION: Showed a creatinine of 2.95, BUN of 46, and potassium of 6.1. IMPRESSION: 1. Anuric acute tubular necrosis, likely due to protracted. 2. cardiorenal syndrome. 3. Hyperkalemia in the context of problem #1. 4. Anasarca. PLAN: 1. We will initiate dialysis and ultrafiltration this patient as tolerated by hemodynamics. 2. Further management to be dependent on the clinical course. Job ID: [id number]
--- NOTE | 2020-06-05 20:43 | CON ---
DATE OF CONSULTATION: REASON FOR CONSULTATION: Worsening cardiomyopathy and possible upgrade to biventricular device. PRIMARY CARE PROVIDER: Dr. Shanks. HISTORY OF PRESENT ILLNESS: Ms. Napier is a 75-year-old female, well known to my practice. She has a history of chronic atrial fibrillation with multiple prior ablations, cardioversions, and attempts with antiarrhythmic medication. Ultimately, she required AV node ablation and single-chamber pacemaker implant in 2017. Also, she has had her left atrial appendage closed via Watchman protocol, which required coil closure on 11/06/2016, but has since been documented closed requiring aspirin alone for stroke prophylaxis. Historically, she has had high-grade RV pacing since the time of her pacemaker implant in 2017, but has had a preserved LVEF at 60% to 65%. She was last seen on 04/26 in my office and had been having some peripheral edema with shortness of breath and had a followup with Cardiology later that day. Since then, she is struggled with the traumatic of her son and has not been taking her medications according to her . Since then, she has had increasing shortness of breath, increasing peripheral edema and PND as well. She was struggling with severe dyspnea and shortness of breath and came to the emergency room for further evaluation. She is currently in IMCU awaiting being moved to ICU for vasopressor support given her congestive heart failure and cardiorenal issues. She is also currently being dialyzed. PROBLEM LIST: 1. Chronic atrial fibrillation. a. Prior ablations, cardioversion, and antiarrhythmic therapy. Ultimately, status post AV node ablation in 2017. 2. Complete AV block, status post AV love ablation. 3. Single-chamber pacemaker in situ placed in 2017. 4. Left atrial appendage closure via Watchman protocol, status post coil closure, now documented closed. 5. TIA immediately following Watchman implant on 03/26/2015. 6. Newly found cardiomyopathy, LVEF approximately 10%, previously 60% to 65%. 7. Coronary artery disease with prior PCI. 8. Hypertension. 9. Diabetes. 10. Obesity. 11. History of breast cancer with lymph node resection and mastectomy. 12. History of GI bleed. ALLERGIES: ADHESIVES, MULTAQ, LEVAQUIN, AND PENICILLIN. REVIEW OF SYSTEMS: Unable to obtain due to ongoing bilevel support. HOME MEDICATIONS: Which she was possibly not taking at all: 1. Atorvastatin. 2. Imdur. 3. Iron. 4. Vitamin D. 5. Glipizide. 6. Lopressor. 7. Lisinopril. 8. Furosemide. 9. Keflex. 10. Metformin. 11. Aspirin. 12. Xanax. 13. Nitro p.r.n. SOCIAL HISTORY: She is , disabled, recent loss of her son. FAMILY HISTORY: Negative for sudden cardiac or early onset CAD. OBJECTIVE: VITAL SIGNS: 5 feet 7 inches, 289 pounds. BMI 45. GENERAL: The patient is arousable to voice. She is in apparent distress with ongoing bilevel support. She does appear to recognize me at the time of exam and as I speak with her . She follows commands with handgrips appropriately. HEENT: She is normocephalic and atraumatic. NECK: Supple. Positive for jugular venous distention. No lymphadenopathy. Her trachea is midline. LUNGS: Have bibasilar crackles. Her respirations are labored and tachypneic. CARDIAC: Heart rate is regular. PMI is minimally palpable due to habitus. Left-sided precordial device is palpable. Site is without reaction. ABDOMEN: Obese. Skin is taut with anasarca extending to her upper abdomen. Hepatojugular reflux is positive. EXTREMITIES: Warm and dry to touch. She has extensive scarring and lesions all over her skin, which is known to be a chronic issue for her with frequent skin infections. NEUROLOGIC: She does move her limbs to command, though minimally. No focal deficits are noted. Again, extensive anasarca noted. Echocardiogram: Severely reduced, less than 20%. Moderate to severe tricuspid regurgitation. Telemetry and EKG show ongoing atrial fibrillation with ventricular pacing. Her pacemaker was reprogrammed by a different provider and her lower rate limit at that point was increased to 90 beats per minute. IMPRESSION: 1. Newly found cardiomyopathy and congestive heart failure. 2. Acute renal failure. 3. Cardiorenal syndrome. 4. Chronic atrial fibrillation. 5. Single-chamber pacemaker, 100% RV pacing since time of implant in 2017. 6. History of left atrial appendage closure via Watchman protocol. PLAN AND RECOMMENDATIONS: Ms. Napier is a 75-year-old woman, followed in my office for her chronic atrial fibrillation with inclusion of a single-chamber pacemaker. She has been seen to have high-grade RV pacing since the time of her AV node ablation and pacemaker implant in 2017. Historically, her LVEF has been preserved in the 60% to 65% range, but had recently began to struggle with peripheral edema and is now seen to have severe systolic heart failure and cardiorenal syndrome. She is in critical condition requiring vasoactive support, currently on dopamine though anticipated to require Levophed in the near future. She is currently undergoing dialysis and is pending transfer to ICU for further support. Her prognosis is poor at this point. She is a candidate for upgrade to a biventricular device, whether the pacemaker or defibrillator. However, my concern is that in her current condition, placing her under anesthesia would be fatal for her. 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 Her high grade RV pacing is not new. Thank you for allowing me to participate in the care of this patient. Job ID: [id number] MTDD
[2020-06-06] MEDS: DOBUTamine 500 mg/250 ml 250 ML IVPB SCH ×2 (01:21→05:17)
[2020-06-06] MEDS: Vasopressin 20 UNIT, Admixture Fee 1 EACH in Sodium Chloride 0.9% 50 ML IV SCH (01:58)
[2020-06-06] MEDS ORDERED: ALPRAZolam 0.5 MG TAB PO SCH (03:45)
[2020-06-06] MEDS: Norepinephrine 8 MG/0.9% NS 250 ML IVPB SCH (04:28)
[2020-06-06 05:15] LABS: #Lymphocytes 0.8 thou/uL (1.20-3.40); #Monocytes 0.7 thou/uL (0.11-0.59); #Neutrophils 5.9 thou/uL (1.40-6.50); %Basophils 0.2 % (0.0-1.0); %Eosinophils 0.6 % (0.0-10.0); %Lymphocytes 10.4 % (21.0-51.0); %Monocytes 9.5 % (0.0-10.0); %Neutrophils 79.3 % (42.0-75.0); Hemoglobin 11.3 g/dL (12.0-16.0); Mean Corpuscular HGB CONC 30.3 g/dL (32.0-36.0); Mean Corpuscular Volume 95.8 fL (78.0-98.0); Mean Platelet Volume 10.2 fL (7.4-10.4); Platelet Count 106 thou/uL (130-400); RBC Distribution Width 16.1 % (11.5-14.5); Red Blood Cell (RBC) Count 3.89 mill/uL (4.20-5.40); White Blood Cell (WBC) Count 7.4 thou/uL (4.8-10.8)
[2020-06-06 05:38] LABS: Albumin 3.2 g/dL (3.4-4.8); Anion Gap 16 mmol/L (10-20); BUN (Urea Nitrogen) 42 mg/dL (9.8-20.1); Calc. Creatinine Clearance 33 mL/min (70-130); Calcium 8.8 mg/dL (7.8-10.44); Carbon Dioxide 25 mmol/L (23-31); Chloride 99 mmol/L (98-107); Glucose 166 mg/dL (83-110); Phosphorus 4.5 mg/dL (2.3-4.7); Potassium 5.9 mmol/L (3.5-5.1); Sodium 134 mmol/L (136-145)
--- NOTE | 2020-06-06 08:11 | OP ---
DATE OF PROCEDURE: 06/05/2020 PROCEDURE PERFORMED: Femoral dialysis catheter placement. MEDICATION: 1% lidocaine. BLOOD LOSS: Insignificant. DETAILS OF PROCEDURE: After informed consent was obtained, the patient was prepped and draped in a sterile fashion. Initial approach was to the right femoral vein, which catheter could not be advanced beyond a particular distance. The decision was taken to move over to the left femoral vein, which was identified with ultrasound and under real-time ultrasound guidance was cannulated and serial dilatation prior to placement of Trialysis catheter. The catheter flushed very well, ready for use. The patient tolerated the procedure very well. Job ID: [id number]
--- NOTE | 2020-06-06 09:16 | PRG ---
DATE OF SERVICE: 06/06/2020 SUBJECTIVE: The patient remains on BiPAP. She additionally is on vasopressin, norepinephrine, and dobutamine for her heart failure. OBJECTIVE: VITAL SIGNS: Temperature 98.5, pulse 90, blood pressure 92/46, O2 saturation 97%. She had an intake of 1472 yesterday, output 135. I am not sure they were able to remove any fluid by dialysis. HEENT: Unremarkable. NECK: No JVD. LUNGS: Diminished breath sounds at the bases. CARDIAC: S1 and S2, regular. ABDOMEN: Soft. EXTREMITIES: Edematous. LABORATORY DATA: White blood cell count 7.4, hematocrit 37.3, and platelet count 106. Sodium 134, potassium 5.9, chloride 99, CO2 of 25, BUN 42, creatinine 3.0, and glucose 166. ASSESSMENT: 1. Biventricular heart failure. 2. Acute respiratory failure secondary to the heart failure. 3. Cardiorenal syndrome. 4. Acute renal failure. PLAN: Does not sound like she is doing well from a cardiac perspective and they are discussing hospice type care. If the heart condition is truly irreversible, then I would be very hesitant to intubate her. I would suggest DNR status. Job ID: [id number]
--- NOTE | 2020-06-06 09:40 | PRG ---
DATE OF SERVICE: 06/06/2020 SUBJECTIVE: Ms. Christal Napier had a variable day. She required changing from dopamine to norepinephrine, but she did okay for a while post dialysis. However overnight, she started to decrease her blood pressure. She needed escalating dose of dobutamine, norepinephrine, and vasopressin was eventually added on. They were only able to pull off about a liter of fluid yesterday. Her urine output was only 135 mL throughout the 24 hours. Overnight, she was confused and then she believed that she is going to be passing today. This morning, she is complaining of discomfort and pain all over and also she is complaining of pain at her right groin and right hip region. She is asking for her to come to see her. REVIEW OF SYSTEMS: GENERAL: She is more alert. Please see HPI. HEENT: There is no change in vision, hearing, or swallowing. PULMONARY: She is not short of breath, but she does not like the BiPAP. CARDIAC: She is not complaining of chest pain or syncope. GI: She is really not eating or swallowing. : She feels like she needs to urinate, but then she has a Snell catheter in place. MUSCULOSKELETAL: Please see HPI. INTEGUMENT: There is no report of new skin breakdown. NEUROLOGIC: There are no new focal deficits or weaknesses. MEDICATIONS: Include; 1. Aspirin 81 mg daily. 2. Dobutamine currently at 12 mcg/kg per minute. 3. Enoxaparin 30 mg subcutaneously daily. 4. Norepinephrine currently at 12.5 mcg/minute. 5. Vasopressin at 0.04 units/minute. PHYSICAL EXAMINATION: VITAL SIGNS: At the time when I saw her, her vitals are, heart rate paced at 90, blood pressure 116/61. GENERAL: She is alert and conversational. She is much more and alert conversational than yesterday. HEENT: Showed EOMI with BiPAP mask on. Oropharynx shows moist mucosa. NECK: JVP is not well evaluated as she is reclined. PULMONARY: She has diminished breath sounds and much crackles on the left lung. Right lung, there is better air movement, there are also basilar crackles. CARDIAC: Regular rate and rhythm with normal S1 and S2. There is 3/6 holosystolic murmur at the left upper sternal border. There is also 2/6 holosystolic murmur at the apex. ABDOMEN: Very large, it is distended with much edema around her back and hip. There is greater than 1 cm pitting edema all the way around. She has some pain to palpation in her right hip, right groin region. She has a dialysis catheter in place in her left femoral vein. LOWER EXTREMITIES She has pitting edema from her thighs all the way down to her feet. LABORATORY VALUES: This morning are white cell count 7.4, hemoglobin 11.3, and platelets at 106. Her chemistry shows sodium 134, potassium 5.9, BUN 42, creatinine is 3. ASSESSMENT: 75-year-old lady has severe acute heart failure with reduced ejection fraction. It is likely AHA stage D and [place] heart Association class 4. She needed escalating doses of dobutamine and norepinephrine, and then she also needed vasopressin to support her pressure. She also needs a pacemaker pacing at 90 beats per minute. All of these are temporary and transient. At this rate escalation, she will not be able to sustain life. Pretty soon, she would not respond to IV medications anymore. She also has acute renal failure, needing dialysis. She has complete heart block, thus pacemaker dependent. She also has a single lead with RV pacing. It is not possible to upgrade her pacemaker device. There is no chance of even recovery with a single lead RV pacing. Consequently, the best possible option is to consult Hospice, allow her to pass comfortably as possible. Please see the following for my recommendations. RECOMMENDATIONS: 1. Continue escalating doses of dobutamine and norepinephrine as needed to keep her comfortable. 2. Please consider do not resuscitation, do not intubation. 3. I have talked to her about the situation already. Her is going to come out and bring his son up to visit his . 4. Please consult Palliative Care,/Hospice. She will be an inpatient hospice candidate. She will not live long without the drips. It has been a pleasure taking care of . Christal Napier. I am very sorry that it has come to this. The critical care time is 60 minutes. This included titrating drips, performing H&P, and holding family meeting. Job ID: [id number] [facility]
--- NOTE | 2020-06-06 09:48 | PDOC.PALCO ---
Palliative Care Consult - Consult Details Requesting Physician: Dr Syed Reason for Consult: goals of care, family support, complex decision-making Family Members Present: and son - Pertinent HPI Ms Napier became noncompliant with her medications one month ago after he son from colon cancer. Increasing shortness of breath with edema over the past month. IV lasix was initiated and consult with Dr Benavidez for heart failure. She is now dependent on Bipap, and has required increasing dosing of dobutamine, norepinephrine, and vasopressin. Decrease in urine output. - Pertinent PMH Heart failure AHA D NYHA IV, renal failure, DM II - Social History Smoking Status: Never smoker Smoking: no tobacco exposure Alcohol Use: none Drug Use History: none Living Situation: - Medications MAR Reviewed: Yes - Allergies Allergies/Adverse Reactions: Allergies Allergy/AdvReac Type Severity Reaction Status Date / Time adhesive Allergy Rash Verified 06/02/20 01:55 dronedarone HCl [From Multaq] Allergy Verified 06/02/20 01:55 levofloxacin [From Levaquin] Allergy Rash Verified 06/02/20 01:55 Penicillins Allergy "swelled Verified 06/02/20 01:55 up" - Subjective On Bipap, mild confusion, labored respirations. Poor historian for ROS secondary to compromised respiratory system - Objective Vital Signs: Vital Signs - Most Recent Temp Pulse Resp BP Pulse Ox 98.5 F 90 16 122/60 100 06/06/20 04:00 06/06/20 08:22 06/04/20 23:24 06/04/20 23:24 06/05/20 20:00 Palliative Performance Scale: 20 - Physical Exam Constitutional: ill appearing, mild distress HEENT: EOMI, moist MMs Deviation from normal: Dry mucous membranes Respiratory: accessory muscle use, diminished lung sound, labored respirations Cardiovascular: irregular Deviation from normal: Murmur Genitourinary: loya catheter Musculoskeletal: edema present Neurology: moves all 4 limbs, no focal deficits Skin: cap refill <2 seconds, fragile Psychiatric: normal affect - Problem List (1) Palliative care encounter Code(s): Z51.5 - ENCOUNTER FOR PALLIATIVE CARE Current Visit: Yes Status: Acute (2) Decompensated heart failure Code(s): I50.9 - HEART FAILURE, UNSPECIFIED Current Visit: Yes Status: Acute (3) Renal failure (ARF), acute on chronic Code(s): N17.9 - ACUTE KIDNEY FAILURE, UNSPECIFIED; N18.9 - CHRONIC KIDNEY DISEASE, UNSPECIFIED Current Visit: Yes Status: Acute (4) Respiratory failure with hypoxia Code(s): J96.91 - RESPIRATORY FAILURE, UNSPECIFIED WITH HYPOXIA Current Visit: Yes Status: Acute (5) Aortic stenosis Code(s): I35.0 - NONRHEUMATIC AORTIC (VALVE) STENOSIS Current Visit: No Status: Acute Qualifiers: Cardiac valve disease etiology: nonrheumatic Qualified Code(s): I35.0 - Nonrheumatic aortic (valve) stenosis - Plan/Recommendations Plan: Patient communicated that she desired to transition to a DNAR, and son at bedside. Document completed. Discussed poor prognosis, and end of life care. Initiated conversation in relation to transition to hospice care. Patient and spouse refused. relayed that they had a bad experience with hospice a month ago with their son and did not desire to peruse hospice again. Discussed comfort measures, will follow up and revisit. Family with poor health literacy. Continued education related to heart failure/multiple morbidities and poor prognosis. Family elected to transition to comfort measures. Dr Huang and Dr Rodrigues notified. Morphine 4mg IVP q 15 min PRN shortness of breath Ativan 2 mg IVP q 2 hour Patient two living sons, and [id number] at bedside. [place] Beyer / Spiritual Care present and involved [75] minutes spent on this encounter with >50% of the time in counseling and coordination of care. Thank you for this very appropriate consult.
[2020-06-06] MEDS ORDERED: Morphine 4 MG/ML VIAL ONE (10:50)
[2020-06-06] MEDS: Morphine 4 MG/ML VIAL SLOW IVP PRN ×2 (10:55→11:28)
[2020-06-06] MEDS ORDERED: Lorazepam 2 MG/ML VIAL SLOW IVP PRN (10:56)
[2020-06-06 11:39] VITALS: TEMP 97.8
[2020-06-06] MEDS: Enoxaparin Sodium 30 MG/0.3 ML SYRINGE SC SCH (12:33)
[2020-06-06] MEDS: Aspirin Chewable 81 MG TAB PO SCH (12:33)
[2020-06-06] MEDS: Metolazone 5 MG TAB PO SCH (12:33)
--- NOTE | 2020-06-06 13:02 | PDOC.HOSPP ---
- Subjective Encounter Date: 06/06/20 Encounter Time: 13:01 non-verbal Subjective: Ms. Napier's family has elected for her to transition to comfort care. They do not want hospice however. I have written orders for comfort measures. Her prognosis appears to be grim. We will slowly taper off the vasopressors. Multiple family members at the bedside. Medicine team will remain available as needed. - Objective Vital Signs & Weight: Vital Signs (12 hours) Temp Pulse Pulse Ox 06/06/20 08:22 90 06/06/20 08:00 97.8 F 99 06/06/20 04:00 98.5 F 06/06/20 02:51 90 Weight Weight 289 lb 3.944 oz Most Recent Monitor Data Heart Rate from ECG 70 NIBP 75/62 NIBP BP-Mean 66 Respiration from ECG 25 SpO2 95 I&O: 06/05/20 06/06/20 06/07/20 06:59 06:59 06:59 Intake Total 1183 1472.8 432 Output Total 110 135 Balance 1073 1337.8 432 Result Diagrams: 06/06/20 04:30 06/06/20 04:30 Radiology Reviewed by me: Yes EKG Reviewed by me: Yes Hospitalist ROS - Review of Systems ROS unobtainable: due to mental status Constitutional: reports: weakness, malaise Respiratory: reports: shortness of breath Neurological: reports: weakness - Medication Medications: Active Medications Generic Name Dose Route Start Last Admin Trade Name Freq PRN Reason Stop Dose Admin Lorazepam 2 mg 06/06/20 10:56 06/06/20 11:28 Lorazepam 2 Mg/Ml Vial SLOW IVP 2 mg Q2H PRN Administration Agitation Morphine Sulfate 4 mg 06/06/20 10:55 06/06/20 11:28 Morphine 4 Mg/Ml Vial SLOW IVP 4 mg Q15MIN PRN Administration sob - Exam General Appearance: NAD, ill appearing Eye: PERRL, anicteric sclera ENT: normocephalic atraumatic, no oropharyngeal lesions Neck: supple, symmetric, no thyromegaly, no lymphadenopathy, JVD Heart: RRR, no murmur, no gallops, no rubs Extremities: 2+ LE edema Extremities - other findings: generalized anarsarca. Hosp A/P (1) Pleural effusion on left Code(s): J90 - PLEURAL EFFUSION, NOT ELSEWHERE CLASSIFIED Status: Acute (2) Aortic stenosis Code(s): I35.0 - NONRHEUMATIC AORTIC (VALVE) STENOSIS Status: Acute Qualifiers: Cardiac valve disease etiology: nonrheumatic Qualified Code(s): I35.0 - Nonrheumatic aortic (valve) stenosis - Plan #1. Acute respiratory failure with hypoxia. This is secondary to congestive heart failure exacerbation. Continue O2 supplementation as needed. 2. Acute on chronic congestive heart failure exacerbation. I suspect this is biventricular. She has been placed on Lasix. However her urine output is very minimal. I will continue this for now and watch her renal function closely. 06/04/2020. Her urine output is still very minimal. She is almost anuric. I am going to request nephrology to help us with further management. 06/06/2020. She ended up requiring emergent dialysis. Family now want comfort measures only. 3. Ischemic cardiomyopathy. Her EF is less than 20%. We will resume her home medications. 4. Acute kidney injury. We will hold her lisinopril and watch her renal function closely. 06/04/2020. I am going to ask nephrology to help with the further management of this complex patient. 06/06/2020. Family has now elected comfort care. Dialysis has been discontinued. 5. Pleural effusion left > right. Diuresis as above. #6. Cardiogenic shock. She is now requiring multiple vasopressors and was transferred to ICU overnight. We will continue this per stamp maker recommendation.
--- NOTE | 2020-06-06 16:47 | PDOC.EP ---
- Subjective Date: 06/06/20 Time: 08:00 Interval History: Condition as worsened overnight. Now on 3 pressors and not expective to live long. Palliative care consult pending this AM. - Review of Systems ROS unobtainable: due to mental status - Objective Allergies/Adverse Reactions: Allergies Allergy/AdvReac Type Severity Reaction Status Date / Time adhesive Allergy Rash Verified 06/02/20 01:55 dronedarone HCl [From Multaq] Allergy Verified 06/02/20 01:55 levofloxacin [From Levaquin] Allergy Rash Verified 06/02/20 01:55 Penicillins Allergy "swelled Verified 06/02/20 01:55 up" Current Medications Lorazepam (Lorazepam 2 Mg/Ml Vial) 2 mg SLOW IVP Q2H PRN PRN Reason: Agitation Last Admin: 06/06/20 11:28 Dose: 2 mg Documented by: Morphine Sulfate (Morphine 4 Mg/Ml Vial) 4 mg SLOW IVP Q15MIN PRN PRN Reason: sob Last Admin: 06/06/20 11:28 Dose: 4 mg Documented by: Vital Signs & Weight: Vital Signs Temp Pulse Pulse Ox 06/06/20 08:22 90 06/06/20 08:00 97.8 F 99 Weight 289 lb 3.944 oz I/O: I/O 06/05/20 06/06/20 06/07/20 06:59 06:59 06:59 Intake Total 1183 1472.8 432 Output Total 110 135 Balance 1073 1337.8 432 - Physical Exam General: negative: alert & oriented x3, appears well, speech clear, affect appropriate HEENT: mucus membranes dry, pallor. negative: oral lesions Neck: supple neck, no lymphadenopathy, JVD/HJR Cardiology: regular rate and rhythm (AF with CHB, Rv pacing) Lungs: bibasilar rales, other (Bilevel support) Abdomen: decreased bowel sounds, distended, other (anasarca) Extremities: + edema B (anasarca) - Labs Result Diagrams: 06/06/20 04:30 06/06/20 04:30 - EKG Interpretation EKG Method: Telemetry EKG shows: Atrial fibrillation - Device Device: single, pacemaker Device Result: [facility] - Assessment/Plan Assessment/Plan: 1. Newly found cardiomyopathy and congestive heart failure. 2. Acute renal failure. 3. Cardiorenal syndrome. 4. Chronic atrial fibrillation. 5. Single-chamber pacemaker, 100% RV pacing since time of implant in 2017. 6. History of left atrial appendage closure via Watchman protocol. Poor prognosis. Palliative care consult placed. Likely comfort care vs hospice in the near future. Too decompensated/unstable to undergo upgrade to VARNISH FILTERER device placement.
--- NOTE | 2020-06-06 17:16 | PRG ---
DATE OF SERVICE: 06/06/2020 SUBJECTIVE: The patient is seen and examined. Noted to be on BiPAP. Otherwise, able to hold a conversation, noted with following vital signs. OBJECTIVE: VITAL SIGNS: Blood pressure 101/72, pulse of 90, respiratory rate of 22, and O2 saturation of 94%. HEENT: Unremarkable. CARDIOVASCULAR SYSTEM: First and second heart sounds were heard. RESPIRATORY SYSTEM: Revealed transmitted sounds. DIGESTIVE SYSTEM: Revealed an obese abdomen with evidence of anasarca. IMPRESSION: 1. Dense acute tubular necrosis in the context of #2. 2. Cardiorenal syndrome due to cardiomyopathy. PLAN: The original plan was to have the patient to undergo dialysis with ultrafiltration as tolerated by hemodynamics, but it seems the family prefers comfort measures and dialysis has been discontinued. We will follow with you. Job ID: [id number]
--- NOTE | 2020-06-09 13:43 | EKG ---
Test Reason : STAT Blood Pressure : / mmHG Vent. Rate : 070 BPM Atrial Rate : 068 BPM P-R Int : 000 ms QRS Dur : 192 ms QT Int : 470 ms P-R-T Axes : 000 266 079 degrees QTc Int : 507 ms Ventricular-paced rhythm Abnormal ECG When compared with ECG of 01-JUN-2020 21:08, (Unconfirmed) Electronic ventricular pacemaker has replaced Wide QRS rhythm Confirmed by LINO BULL (2) on 06/09/2020 1:43:09 PM Referred By: TIAGO BLACKMON Confirmed By:LINO BULL
== END 2020-06-06 16:05 | disposition expired | DRG 291 ==
LOC: ERS 20:29 → 2SE 23:46 → IMCU/EMU 06-05 01:21 → CCU 06-05 15:04
PROVIDERS: ADMIT Internal Medicine; ATTEND Hospitalist
PROC: 3E033XZ Introduction of Vasopressor into Peripheral Vein, Percutaneous Approach (ICD-10-PCS; 2020-06-04)
PROC: 5A09457 Assistance with Respiratory Ventilation, 24-96 Consecutive Hours, Continuous Positive Airway Pressure (ICD-10-PCS; principal; 2020-06-05)
PROC: 06HY33Z Insertion of Infusion Device into Lower Vein, Percutaneous Approach (ICD-10-PCS; 2020-06-05)
PROC: 5A1D70Z Performance of Urinary Filtration, Intermittent, Less than 6 Hours Per Day (ICD-10-PCS; 2020-06-05)
PROC: 4B02XSZ Measurement of Cardiac Pacemaker, External Approach (ICD-10-PCS; 2020-06-05)
DX: I13.0 Hypertensive heart and chronic kidney disease with heart failure and stage 1 through stage 4 chronic kidney disease, or unspecified chronic kidney disease (principal); I50.23 Acute on chronic systolic (congestive) heart failure; N17.0 Acute kidney failure with tubular necrosis; J96.01 Acute respiratory failure with hypoxia; Z68.41 Body mass index [BMI] 40.0-44.9, adult; I48.11 Longstanding persistent atrial fibrillation; R18.8 Other ascites; Z20.828 Contact with and (suspected) exposure to other viral communicable diseases; Z66 Do not resuscitate; Z51.5 Encounter for palliative care; I25.10 Atherosclerotic heart disease of native coronary artery without angina pectoris; E66.01 Morbid (severe) obesity due to excess calories; I08.3 Combined rheumatic disorders of mitral, aortic and tricuspid valves; G47.33 Obstructive sleep apnea (adult) (pediatric); I25.5 Ischemic cardiomyopathy; I50.82 Biventricular heart failure; E11.22 Type 2 diabetes mellitus with diabetic chronic kidney disease; N18.30 Chronic kidney disease, stage 3 unspecified; E78.5 Hyperlipidemia, unspecified; R57.0 Cardiogenic shock; E87.5 Hyperkalemia; Z85.3 Personal history of malignant neoplasm of breast; Z95.0 Presence of cardiac pacemaker; Z95.5 Presence of coronary angioplasty implant and graft; Z88.1 Allergy status to other antibiotic agents; Z88.0 Allergy status to penicillin; Z88.8 Allergy status to other drugs, medicaments and biological substances; Z91.048 Other nonmedicinal substance allergy status; Z79.899 Other long term (current) drug therapy; Z79.84 Long term (current) use of oral hypoglycemic drugs; Z79.82 Long term (current) use of aspirin; Z90.49 Acquired absence of other specified parts of digestive tract; Z91.14 Patient's other noncompliance with medication regimen; Z90.10 Acquired absence of unspecified breast and nipple; Z92.21 Personal history of antineoplastic chemotherapy; Z92.3 Personal history of irradiation; Z82.49 Family history of ischemic heart disease and other diseases of the circulatory system; Z83.3 Family history of diabetes mellitus
CPT/HCPCS: 36415; 36416; 71045; 74177; 76705; 80048; 80053; 80069; 80076; 83735; 83880; 84145; 84443; 84484; 85025; 85610; 85730; 86704; 86706; 86803; 87340; 87635; 90935; 93005; 93010; 93306; 93798; 94660; 96374; G0257; J1250; J1265; J1644; J1650; J1815; J1940; J2001; J2060; J2270; J2405; P9047; Q0163; Q9967; U0003